=== PATIENT | female | born 1925 | race Caucasian/White ===

== ENCOUNTER 2017-05-19 14:27 | Inpatient (IN) | payer OTHER ==
[2017-05-19] MEDS ORDERED: SODIUM CHLORIDE 0.9% 1000 ML INFUS.BAG IV STA (14:50)
--- NOTE | 2017-05-19 15:18 | PDOC ---
History of Present Illness - General Chief Complaint: Altered Mental Status Stated Complaint: NOT FEELING WELL Time Seen by Provider: 05/19/17 14:35 History Source: Patient, Senior Living Records Exam Limitations: Clinical Condition - History of Present Illness Initial Comments: 05/19/17 18:38 The patient is an 89year old female, nursing patient at [facility] with pmh of DM2, CKD stage 3, atherosclerothic heart disease, HTN, CHF, chronic anemia sent to the ED by EMS for altered mental status since today and likely fall without LOC. No obvious signs of trauma or bleed. No recent episodes of infections as reported by prison. 05/19/17 19:10 05/19/17 19:12 Past History - Past Medical History Allergies/Adverse Reactions: Allergies Allergy/AdvReac Type Severity Reaction Status Date / Time No Known Allergies Allergy Unverified 05/19/17 14:32 Home Medications: Ambulatory Orders Acetaminophen [Tylenol -] 500 mg PO Q4H 05/19/17 Aspirin [ASA -] 81 mg PO DAILY 05/19/17 Calcium Carbonate/Vitamin D3 [Calcium 500 + Vit D 200 Caplet] 1 each PO DAILY Cholecalciferol (Vitamin D3) [Vitamin D3] 1,000 unit PO DAILY 05/19/17 Digoxin Oral Solution [Lanoxin Oral Solution -] 100 mcg PO ONCE 05/19/17 Diltiazem Cd [Cardizem Cd -] 240 mg PO DAILY 05/19/17 Folic Acid 1 mg PO DAILY 05/19/17 Furosemide [Lasix] 40 mg PO DAILY 05/19/17 Gabapentin 400 mg PO BID 05/19/17 Gabapentin [Neurontin -] 100 mg PO Q8H 05/19/17 Insulin Aspart [Novolog] 100 unit SQ ASDIR 05/19/17 Insulin Detemir [Levemir Flextouch] 43 unit SQ DAILY 05/19/17 Isosorbide Mononitrate [Isosorbide Mononitrate ER] 30 mg PO DAILY 05/19/17 Levothyroxine [Synthroid -] 125 mcg PO DAILY 05/19/17 Losartan Potassium [Cozaar -] 50 mg PO DAILY 05/19/17 Magnesium Hydrox 2400MG/30Ml [Milk of Magnesia -] 30 ml PO ONCE 05/19/17 Metformin HCl 500 mg PO DAILY 05/19/17 Metoprolol Tartrate 25 mg PO BID 05/19/17 Multivitamin [Poly-Vitamin] 1 each PO DAILY 05/19/17 Olmesartan Medoxomil 20 mg PO DAILY 05/19/17 Potassium Chloride 10 meq PO DAILY 05/19/17 Simvastatin [Zocor -] 5 mg PO HS 05/19/17 Thiamine HCl [Vitamin B-1] 100 mg PO DAILY 05/19/17 Anemia: Yes Cardiac Disorders: Yes (AFIB) Diabetes: Yes Hypercholesterolemia: Yes Thyroid Disease: Yes - Psycho/Social/Smoking Cessation Hx Suicidal Ideation: No Smoking History: Never smoked Information on smoking cessation initiated: No Hx Alcohol Use: No Review of Systems - Review of Systems Able to Perform ROS?: No *Physical Exam - Vital Signs Last Vital Signs Temp Pulse Resp BP Pulse Ox 58 L 18 138/68 86 L 05/19/17 14:34 05/19/17 14:34 05/19/17 14:34 05/19/17 14:34 - Physical Exam General Appearance: Yes: Nourished, Disheveled, Moderate Distress (patient very pale) HEENT: positive: EOMI, VALERIANO Neck: positive: Trachea midline. negative: Tender Respiratory/Chest: positive: Labored Respiration, Decreased Breath Sounds. negative: Chest Tender Cardiovascular: positive: Regular Rhythm, Regular Rate, S1, S2, Bradycardia Vascular Pulses: Dorsalis-Pedis (R): 1+, Doralis-Pedis (L): 1+ Gastrointestinal/Abdominal: positive: Normal Bowel Sounds, Protuberent, Distended. negative: Guarding Neurologic: positive: Fully Oriented (Easily falls asleep), Respond to painful stimul, Responsive, Depressed Affect. negative: Facial Droop, Numbness, Sensory Deficit ED Treatment Course - LABORATORY CBC & Chemistry Diagram: 05/19/17 14:55 05/19/17 14:55 Medical Decision Making - Medical Decision Making 05/19/17 19:12 The patient is an 89year old female, nursing patient at [facility] with pmh of DM2, CKD stage 3, atherosclerothic heart disease, HTN, CHF, chronic anemia sent to the ED by EMS for altered mental status since today and likely fall without LOC. Stroke vs unknown source of infection vs cardiac event Patient desaturating in the 80's, placed one bipap, o2 up. Ekg: unchanged from older ones. Ct head pending CBC, Lytes: + for hyperkalemia, patient receiving treatment Ca gluconate, insulin+ glucago. UA+ for UTI, patient started on Rocephin. Acute kidney injury, NS started, ABG: Respiratory acidosis uncompensated. Patient signed out to Dr. Combs. 05/19/17 19:17 05/19/17 19:22 05/19/17 19:23 *DC/Admit/Observation/Transfer Diagnosis at time of Disposition: Respiratory failure, Acute renal failure (ARF), UTI (urinary tract infection), Sepsis associated hypotension - Discharge Dispostion Condition at time of disposition: Improved
[2017-05-19 15:20] LABS: ARTERIAL BLD GAS O2 SATURATION 33.7 % (90-98.9); ARTERIAL BLOOD GAS BASE EXCESS -2.5 meq/l (-2-2); ARTERIAL BLOOD GAS HCO3 25.6 meq/L (22-26); ARTERIAL BLOOD GAS PO2 27.1 mmHg (68-100)
[2017-05-19 15:23] LABS: ART PUNCT SITE RIGHT BRACHIAL; LPM/O2% 4.0LPM; METHEMOGLOBIN 0.9 % (0.4-1.5); PT. ON O2? YES; TYPE OF O2 NASAL CANNULA
[2017-05-19 15:25] LABS: ARTERIAL BLOOD GAS pH 7.22 (7.35-7.45)
[2017-05-19 15:48] LABS: URINE APPEARANCE CLOUDY; URINE BILIRUBIN NEGATIVE (NEGATIVE); URINE BLOOD NEGATIVE (NEGATIVE); URINE COLOR DKYELLOW; URINE GLUCOSE (UA) NEGATIVE (NEGATIVE); URINE KETONE NEGATIVE (NEGATIVE); URINE NITRITE NEGATIVE (NEGATIVE); URINE UROBILINOGEN NEGATIVE mg/dL (0.2-1.0)
[2017-05-19 15:50] LABS: BASOPHIL 0.7 % (0-2.0); EOSINOPHIL 1.2 % (0-4.5); MCH 33.7 pg (25.7-33.7); MEAN CELL VOLUME 105.3 fl (80-96); MEAN PLT VOLUME 8.4 fl (7.5-11.1); NEUTROPHILS 70.3 % (42.8-82.8); PLATELET COUNT 302 K/MM3 (134-434); RDW 16.8 % (11.6-15.6); URINE LEUK ESTERASE 3+ (NEGATIVE); URINE PROTEIN 1+ (NEGATIVE); WHITE BLOOD COUNT 8.7 K/mm3 (4.0-10.0)
[2017-05-19 15:51] LABS: URINE BACTERIA MANY /hpf (NONE SEEN); URINE HYALINE CAST 44 /lpf; URINE MUCUS FEW; URINE RBC 3 /hpf (0-3); URINE WBC 224 /hpf (3-5); YEAST FEW
[2017-05-19 16:03] LABS: INR 1.43 (0.82-1.09); PROTHROMBIN TIME (PATIENT) 15.9 SEC (9.98-11.88)
[2017-05-19 16:06] LABS: ACTIVATED PTT 31.5 SECONDS (26.9-34.4)
[2017-05-19 16:17] LABS: ALBUMIN 3.9 g/dl (3.4-5.0); ANION GAP 12 (8-16); CALCIUM 9.5 mg/dL (8.5-10.1); CO2 23 mmol/L (21-32); CREATININE 3.7 mg/dL (0.55-1.02); GLUCOSE,RANDOM 181 mg/dL (74-106); SGPT/ALT 24 U/L (12-78)
[2017-05-19 16:21] LABS: ALK PHOS 60 U/L (45-117); BILIRUBIN,TOTAL 0.3 mg/dL (0.2-1.0); CPK 359 IU/L (26-192); TOT PROT 8.1 g/dl (6.4-8.2); TROPONIN I < 0.02 ng/ml (0.00-0.05)
[2017-05-19 16:24] LABS: SGOT/AST 25 U/L (15-37)
[2017-05-19] MEDS ORDERED: INSULIN REGULAR HUMAN 100 UNITS/ML *VIAL IVPUSH ONE ×2 (16:37→23:22)
[2017-05-19] MEDS ORDERED: CALCIUM GLUCONATE 10% - 1,000 MG/10 ML VIAL IVPB ONE (16:37)
[2017-05-19] MEDS ORDERED: SODIUM BICARBONATE 8.4% 50 MEQ/50 ML DISP.SYRIN IVPUSH ONE (16:37)
[2017-05-19] MEDS ORDERED: DEXTROSE 50%-WATER - 25 GM/50 ML VIAL IVPUSH ONE ×2 (16:37→23:23)
[2017-05-19] MEDS ORDERED: cefTRIAXone 1 GM/50 ML BAG (PRE-DOCKED) IVPB ONE (16:41)
--- NOTE | 2017-05-19 16:46 | PDOC ---
Attending Attestation - Resident Resident Name: Chele Martinez - ED Attending Attestation I have performed the following: I have examined & evaluated the patient, The case was reviewed & discussed with the resident, I agree w/resident's findings & plan, Exceptions are as noted - HPI HPI: 05/19/17 16:44 Difficulty Breathing- Complicated PMH Patient has Signed DNR in chart from 2012 But says that we could even intubate her if necessary if we thought it would only be a few days. - Physicial Exam PE: 05/19/17 16:45 Marked Respiratory Difficulty.... quite possibly retaining CO2..... will start BiPAP I agree with Dr. Martinez's assessment and plan - Medical Decision Making 05/19/17 16:[address] Martinez's assessment and plan Discharge Disposition - Diagnosis Respiratory failure, Acute renal failure (ARF), UTI (urinary tract infection), Sepsis associated hypotension - Discharge Dispostion Condition at time of disposition: Improved Last Admission D/C Date: 04/30/15 Admit: Yes - Referrals Referrals: Kika De La O MD [Primary Care Provider] -
[2017-05-19 17:01] LABS: ANISOCYTOSIS 1+; MACROCYTOSIS 1+; OVALOCYTE 1+; PLATELET ESTIMATE ADEQUATE; POIKILOCYTOSIS 1+; POLYCHROMASIA 1+
[2017-05-19] MEDS ORDERED: CALCIUM GLUCONATE 10% - 1,000 MG/10 ML VIAL ONE ×2 (17:02→22:31)
[2017-05-19] MEDS ORDERED: DEXTROSE 50%-WATER - 25 GM/50 ML VIAL ONE (17:02)
[2017-05-19] MEDS ORDERED: CEFTRIAXONE 50 ML ONE (17:03)
[2017-05-19] MEDS ORDERED: SODIUM BICARBONATE 8.4% - 50 ML ONE (17:03)
[2017-05-19] MEDS ORDERED: METOPROLOL TARTRATE 25 MG TABLET (FP) ONE (22:18)
[2017-05-19] MEDS ORDERED: RAPID SEQUENCE INTUBATION KIT NR ONE (22:26)
[2017-05-19] MEDS ORDERED: DEXTROSE 50%-WATER 50 ML DISP.SYRIN ONE (22:31)
[2017-05-19] MEDS ORDERED: VASOPRESSIN 20 UNITS/ML VIAL IV ONE (22:48)
--- NOTE | 2017-05-19 23:01 | CONSULT ---
Consult - History of Present Illness History of Present Illness: 89 yo woman residential resident w/ MMP: HTN, HLD, DM, afib on digoxin, CKD ( stage 3), CHF, anemia who presented for NH w/ AMS s/p fall. In ED found to have hypercapnic resp failure: pH 7.22 PC02: 64 and PVC on CXR. BNP: 6749, trop neg. Last ECHO: EF 70% w/ RVSP >60. Patient placed on NIPPV initially w/ good effect but patient has progressive AMS and required intubation. CT head w/o acute pathology. Labs also significant for JAZZ w/ SCr: 3.7. U/A: +3 LE, 224 wbc. - History Source History Provided By: Medical Record Limitations to Obtaining History: Intubated - Past Medical History Cardio/Vascular: Yes: AFIB, HTN, Hyperlipdemia Renal/: Yes: Renal Inusuff, UTI Endocrine: Yes: Diabetes Mellitus - Alcohol/Substance Use Hx Alcohol Use: No - Smoking History Smoking history: Never smoked - Social History Usual Living Arrangement: Intermediate ADL: Support Services History of Recent Travel: No Home Medications - Allergies Allergies/Adverse Reactions: Allergies Allergy/AdvReac Type Severity Reaction Status Date / Time No Known Allergies Allergy Unverified 05/19/17 14:32 - Home Medications Home Medications: Ambulatory Orders Acetaminophen [Tylenol -] 500 mg PO Q4H 05/19/17 Aspirin [ASA -] 81 mg PO DAILY 05/19/17 Calcium Carbonate/Vitamin D3 [Calcium 500 + Vit D 200 Caplet] 1 each PO DAILY Cholecalciferol (Vitamin D3) [Vitamin D3] 1,000 unit PO DAILY 05/19/17 Digoxin Oral Solution [Lanoxin Oral Solution -] 100 mcg PO ONCE 05/19/17 Diltiazem Cd [Cardizem Cd -] 240 mg PO DAILY 05/19/17 Folic Acid 1 mg PO DAILY 05/19/17 Furosemide [Lasix] 40 mg PO DAILY 05/19/17 Gabapentin 400 mg PO BID 05/19/17 Gabapentin [Neurontin -] 100 mg PO Q8H 05/19/17 Insulin Aspart [Novolog] 100 unit SQ ASDIR 05/19/17 Insulin Detemir [Levemir Flextouch] 43 unit SQ DAILY 05/19/17 Isosorbide Mononitrate [Isosorbide Mononitrate ER] 30 mg PO DAILY 05/19/17 Levothyroxine [Synthroid -] 125 mcg PO DAILY 05/19/17 Losartan Potassium [Cozaar -] 50 mg PO DAILY 05/19/17 Magnesium Hydrox 2400MG/30Ml [Milk of Magnesia -] 30 ml PO ONCE 05/19/17 Metformin HCl 500 mg PO DAILY 05/19/17 Metoprolol Tartrate 25 mg PO BID 05/19/17 Multivitamin [Poly-Vitamin] 1 each PO DAILY 05/19/17 Olmesartan Medoxomil 20 mg PO DAILY 05/19/17 Potassium Chloride 10 meq PO DAILY 05/19/17 Simvastatin [Zocor -] 5 mg PO HS 05/19/17 Thiamine HCl [Vitamin B-1] 100 mg PO DAILY 05/19/17 Family Disease History - Family Disease History Family History: Unable to Obtain Review of Systems Unable to obtain ROS, reason: intubation Physical Exam Vital Signs: Vital Signs Temperature 98.6 F 05/19/17 21:58 Pulse Rate 52 L 05/19/17 21:58 Respiratory Rate 18 05/19/17 20:28 Blood Pressure 113/87 05/19/17 21:58 O2 Sat by Pulse Oximetry (%) 98 05/19/17 21:58 Current Medications Diltiazem HCl (Cardizem Cd -) 240 mg PO DAILY [facility] Heparin Sodium (Porcine) (Heparin -) 5,000 unit SQ TID [facility] Propofol (Diprivan -) 100 mls @ 2.041 mls/hr IVPB TITR MARY; 5 MCG/KG/MIN PRN Reason: Protocol Famotidine/Sodium Chloride (Pepcid 20 Mg Premixed Ivpb -) 50 mls @ 100 mls/hr IVPB Q2D [facility] Isosorbide Mononitrate (Imdur -) 30 mg PO DAILY [facility] Levothyroxine Sodium (Synthroid -) 150 mcg PO DAILY@0700 [facility] Metoprolol Tartrate (Lopressor -) 25 mg PO BID [facility] Piperacillin Sod/Tazobactam Sod (Zosyn 3.375gm Ivpb (Pre-Docked)) 3.375 gm IVPB BID MARY PRN Reason: Protocol Constitutional: Yes: Obese, Other (sedated) Eyes: Yes: PERRL Cardiovascular: Yes: Regular Rate and Rhythm, S1, S2 Respiratory: Yes: Intubated, Rhonchi Gastrointestinal: Yes: Normal Bowel Sounds, Soft, Abdomen, Obese Edema: LLE: 2+, RLE: 2+ Neurological: Yes: Other (sedated RASS -4) Labs: CBCD WBC 8.7 K/mm3 (4.0-10.0) 05/19/17 14:55 RBC 3.38 M/mm3 (3.60-5.2) L 05/19/17 14:55 Hgb 11.4 GM/dL (10.7-15.3) D 05/19/17 14:55 Hct 35.6 % (32.4-45.2) D 05/19/17 14:55 MCV 105.3 fl (80-96) H 05/19/17 14:55 MCHC 32.0 g/dl (32.0-36.0) 05/19/17 14:55 RDW 16.8 % (11.6-15.6) H D 05/19/17 14:55 Plt Count 302 K/MM3 (134-434) 05/19/17 14:55 MPV 8.4 fl (7.5-11.1) D 05/19/17 14:55 CMP Sodium 134 mmol/L (136-145) L 05/19/17 14:55 Potassium 7.6 mmol/L (3.5-5.1) H* D 05/19/17 14:55 Chloride 99 mmol/L (98-107) 05/19/17 14:55 Carbon Dioxide 23 mmol/L (21-32) D 05/19/17 14:55 Anion Gap 12 (8-16) 05/19/17 14:55 BUN 73 mg/dL (7-18) H D 05/19/17 14:55 Creatinine 3.7 mg/dL (0.55-1.02) H D 05/19/17 14:55 Creat Clearance w eGFR 11.53 (>60) 05/19/17 14:55 Random Glucose 181 mg/dL (74-106) H D 05/19/17 14:55 Calcium 9.5 mg/dL (8.5-10.1) 05/19/17 14:55 Total Bilirubin 0.3 mg/dL (0.2-1.0) D 05/19/17 14:55 AST 25 U/L (15-37) 05/19/17 14:55 ALT 24 U/L (12-78) 05/19/17 14:55 Alkaline Phosphatase 60 U/L (45-117) D 05/19/17 14:55 Total Protein 8.1 g/dl (6.4-8.2) D 05/19/17 14:55 Albumin 3.9 g/dl (3.4-5.0) D 05/19/17 14:55 CARDIAC ENZYMES Creatine Kinase 359 IU/L (26-192) H 05/19/17 14:55 Troponin I < 0.02 ng/ml (0.00-0.05) 05/19/17 14:55 Urine Test Results Urine Color Dkyellow 05/19/17 14:55 Urine Appearance Cloudy 05/19/17 14:55 Urine pH 5.0 (5.0-8.0) 05/19/17 14:55 Ur Specific [place] >= 1.030 (1.005-1.025) H 05/19/17 14:55 Urine Protein 1+ (NEGATIVE) H 05/19/17 14:55 Urine Glucose (UA) Negative (NEGATIVE) 05/19/17 14:55 Urine Ketones Negative (NEGATIVE) 05/19/17 14:55 Urine Blood Negative (NEGATIVE) 05/19/17 14:55 Urine Nitrite Negative (NEGATIVE) 05/19/17 14:55 Urine Bilirubin Negative (NEGATIVE) 05/19/17 14:55 Ur Leukocyte Esterase 3+ (NEGATIVE) H 05/19/17 14:55 Urine RBC 3 /hpf (0-3) 05/19/17 14:55 Urine WBC 224 /hpf (3-5) 05/19/17 14:55 Ur Epithelial Cells Rare /hpf (FEW) 05/19/17 14:55 Urine Bacteria Many /hpf (NONE SEEN) 05/19/17 14:55 Urine Mucus Few 05/19/17 14:55 ABG Results ABG pH 7.22 (7.35-7.45) L* 05/19/17 15:13 ABG pCO2 at Pt Temp 64.2 mmHg (35-45) H* 05/19/17 15:13 ABG pO2 at Pt Temp 27.1 mmHg (68-100) L* 05/19/17 15:13 ABG HCO3 25.6 meq/L (22-26) 05/19/17 15:13 ABG O2 Sat (Measured) 33.7 % (90-98.9) L* 05/19/17 15:13 ABG O2 Content 5.1 % vol (15-22) L* 05/19/17 15:13 ABG Base Excess -2.5 meq/l (-2-2) L 05/19/17 15:13 Imaging - Results Chest X-ray: Report Reviewed, Image Reviewed X-ray: Report Reviewed, Image Reviewed Problem List - Problems (1) Acute renal failure (ARF) Code(s): N17.9 - ACUTE KIDNEY FAILURE, UNSPECIFIED (2) Respiratory failure Code(s): J96.90 - RESPIRATORY FAILURE, UNSP, UNSP W HYPOXIA OR HYPERCAPNIA (3) UTI (urinary tract infection) Code(s): N39.0 - URINARY TRACT INFECTION, SITE NOT SPECIFIED (4) Altered mental status Code(s): R41.82 - ALTERED MENTAL STATUS, UNSPECIFIED (5) CHF (congestive heart failure) Code(s): I50.9 - HEART FAILURE, UNSPECIFIED Qualifiers: Congestive heart failure type: systolic Congestive heart failure chronicity: acute Qualified Code(s): I50.21 - Acute systolic (congestive) heart failure (6) Diabetes Code(s): E11.9 - TYPE 2 DIABETES MELLITUS WITHOUT COMPLICATIONS Assessment/Plan a/p: 89 yo woman with HTN, DM, CHF, pHTN on last ECHO, acute on CKD: prerenal from sepsis vs CHF vs ATN, CHF p/w AMS s/p fall found to have UTI +/- HCAP and CHF c/b hypercapnia requiring intubation -ICU monitoring -cont BB/isosorbide tiago hold for hypotension -check dig level -sedation w/ propofol as needed -daily interruption of sedation -O2 for sat >90% -VAP bundle -daily weaning trials once stable -LE ultrasound (unclear if on pradaxa at [place]) -NIPPV as needed -Renal consult -Renal dose medications -urine lytes -renal u/s pending -will likely require aggressive diuresis for CHF/PVC and pHTN with lasix -zosyn HCAP and UTI (h/o E. coli in past) coverage -ID consult in AM -send sputum culutre -f/u cultures -DVT/GI prophylaxis -glucose control -DNR, cont goals of care discussions Yolanda ACNP Pulm/CCM CCT: 35m
[2017-05-19] MEDS ORDERED: ETOMIDATE 40 MG/20 ML VIAL IVPUSH ONE (23:10)
[2017-05-19] MEDS ORDERED: ROCURONIUM BROMIDE 50 MG/5 ML VIAL IVPUSH ONE (23:10)
[2017-05-19] MEDS ORDERED: CALCIUM GLUCONATE 10% - 1,000 MG/10 ML VIAL IVPUSH ONE (23:22)
--- NOTE | 2017-05-19 23:24 | PDOC ---
*Physical Exam - Vital Signs Last Vital Signs Temp Pulse Resp BP Pulse Ox 98.6 F 52 L 18 113/87 98 05/19/17 21:58 05/19/17 21:58 05/19/17 20:28 05/19/17 21:58 05/19/17 21:58 ED Treatment Course - LABORATORY CBC & Chemistry Diagram: 05/19/17 14:55 05/19/17 14:55 - ADDITIONAL ORDERS Additional order review: Laboratory Results 05/19/17 05/19/17 05/19/17 15:13 15:13 14:55 INR PTT (Actin FS) Puncture Site Right brachial ABG pH 7.22 L* ABG pCO2 at Pt Temp 64.2 H* ABG pO2 at Pt Temp 27.1 L* ABG HCO3 25.6 ABG O2 Sat (Measured) 33.7 L* ABG O2 Content 5.1 L* ABG Base Excess -2.5 L Gonzalo Test Not applicable Carboxyhemoglobin 1.3 Methemoglobin 0.9 O2 Delivery Device Nasal cannula Oxygen Flow Rate 4.0lpm PEEP 0.0 Sodium Potassium Chloride Carbon Dioxide Anion Gap BUN Creatinine Creat Clearance w eGFR Random Glucose Lactic Acid Calcium Total Bilirubin AST ALT Alkaline Phosphatase Creatine Kinase Creatine Kinase Index CK-MB (CK-2) Troponin I B-Natriuretic Peptide 6749.30 H Total Protein Albumin Urine Color Urine Appearance Urine pH Ur Specific [place] Urine Protein Urine Glucose (UA) Urine Ketones Urine Blood Urine Nitrite Urine Bilirubin Urine Urobilinogen Ur Leukocyte Esterase Urine RBC Urine WBC Ur Epithelial Cells Urine Bacteria Hyaline Casts Urine Mucus Urine Yeast Blood Type A POSITIVE Antibody Screen Negative 05/19/17 05/19/17 05/19/17 14:55 14:55 14:55 INR PTT (Actin FS) Puncture Site ABG pH ABG pCO2 at Pt Temp ABG pO2 at Pt Temp ABG HCO3 ABG O2 Sat (Measured) ABG O2 Content ABG Base Excess Gonzalo Test Carboxyhemoglobin Methemoglobin O2 Delivery Device Oxygen Flow Rate PEEP Sodium 134 L Potassium 7.6 H* D Chloride 99 Carbon Dioxide 23 D Anion Gap 12 BUN 73 H D Creatinine 3.7 H D Creat Clearance w eGFR 11.53 Random Glucose 181 H D Lactic Acid 1.6 Calcium 9.5 Total Bilirubin 0.3 D AST 25 ALT 24 Alkaline Phosphatase 60 D Creatine Kinase 359 H Creatine Kinase Index 0.8 CK-MB (CK-2) 2.935 Troponin I < 0.02 B-Natriuretic Peptide Total Protein 8.1 D Albumin 3.9 D Urine Color Dkyellow Urine Appearance Cloudy Urine pH 5.0 Ur Specific [place] >= 1.030 H Urine Protein 1+ H Urine Glucose (UA) Negative Urine Ketones Negative Urine Blood Negative Urine Nitrite Negative Urine Bilirubin Negative Urine Urobilinogen Negative Ur Leukocyte Esterase 3+ H Urine RBC 3 Urine WBC 224 Ur Epithelial Cells Rare Urine Bacteria Many Hyaline Casts 44 Urine Mucus Few Urine Yeast Few Blood Type Antibody Screen 05/19/17 14:55 INR 1.43 H PTT (Actin FS) 31.5 D Puncture Site ABG pH ABG pCO2 at Pt Temp ABG pO2 at Pt Temp ABG HCO3 ABG O2 Sat (Measured) ABG O2 Content ABG Base Excess Gonzalo Test Carboxyhemoglobin Methemoglobin O2 Delivery Device Oxygen Flow Rate PEEP Sodium Potassium Chloride Carbon Dioxide Anion Gap BUN Creatinine Creat Clearance w eGFR Random Glucose Lactic Acid Calcium Total Bilirubin AST ALT Alkaline Phosphatase Creatine Kinase Creatine Kinase Index CK-MB (CK-2) Troponin I B-Natriuretic Peptide Total Protein Albumin Urine Color Urine Appearance Urine pH Ur Specific [place] Urine Protein Urine Glucose (UA) Urine Ketones Urine Blood Urine Nitrite Urine Bilirubin Urine Urobilinogen Ur Leukocyte Esterase Urine RBC Urine WBC Ur Epithelial Cells Urine Bacteria Hyaline Casts Urine Mucus Urine Yeast Blood Type Antibody Screen 05/19/17 14:55 RBC 3.38 L MCV 105.3 H MCHC 32.0 RDW 16.8 H D MPV 8.4 D Neutrophils % 70.3 Lymphocytes % 15.9 D Monocytes % 11.9 H Eosinophils % 1.2 Basophils % 0.7 - Medications Given in the ED: ED Medications Discontinued Medications Generic Name Dose Route Start Last Admin Trade Name Freq PRN Reason Stop Dose Admin Calcium Gluconate 1,000 mg 05/19/17 16:37 05/19/17 18:26 Calcium Gluconate 10% - IVPB 05/19/17 16:38 1,000 mg ONCE ONE Administration Ceftriaxone Sodium 1 gm 05/19/17 16:41 05/19/17 17:20 Rocephin 1gm Ivpb (Pre-Docked) IVPB 05/19/17 16:42 1 gm ONCE ONE Administration Protocol Dextrose 50 gm 05/19/17 16:37 05/19/17 17:20 D50w (Vial) - IVPUSH 05/19/17 16:38 50 gm NOW ONE Administration Insulin Human Regular 10 units 05/19/17 16:37 05/19/17 17:20 Novolin R Vial *For Ivpush Or Iv Drip Only* IVPUSH 05/19/17 16:38 10 unit ONCE ONE Administration Sodium Bicarbonate 50 meq 05/19/17 16:37 05/19/17 17:20 Sodium Bicarbonate 8.4% - IVPUSH 05/19/17 16:38 50 meq ONCE ONE Administration Sodium Chloride 1,361 ml 05/19/17 14:50 05/19/17 15:30 Normal Saline - IV 05/19/17 14:51 1,361 ml ONCE STA Administration Medical Decision Making - Medical Decision Making 05/19/17 23:17 Sign out taken from Dr. Junior at 7pm. At approx 10 PM, pt was found to be unresponsive. She had been on BiPAP for about 1 hour and was last seen awake and mentating about 20 minutes prior. Due to poor mental status and inability to cooperate with BiPAP, decision was made to intubate pt. I personally spoke with pt's healthcare proxy, Keysha Almazan, who agrees to proceed with intubation. Dr. Junior also had conversation with patient herself earlier today when she was alert, and pt stated that she was amenable to intubation if it was required. Etomidate 20mg and rocuronium 100mg were given, and pt was intubated by DL. Vitals at time of intubation showed HR 50, BP 110/50, O2 100%. 7.0 ETT advanced to 20cm. Placement confirmed by direct visualization, auscultation, and color capnography. Chest XR ordered. Pt to be transported to ICU. *DC/Admit/Observation/Transfer Diagnosis at time of Disposition: Respiratory failure, Acute renal failure (ARF), UTI (urinary tract infection), Sepsis associated hypotension - Discharge Dispostion Condition at time of disposition: Improved Intubation - Intubation Reason for Intubation: Respiratory Failure, Airway Protection Time of Intubation: 23:00 Intubation Method: orotracheal Blade used: Mac Tube Size (cm): 7.0 Tube position @ lip (cm): 20 Tube position confirmed by: Direct visualization, CO2 detector, Breath sounds Breath Sounds after Intubation: equal Post Intubation Xray: Yes (ordered)
[2017-05-19] MEDS: METOPROLOL TARTRATE 25 MG TABLET (FP) PO SCH (23:26)
[2017-05-19] MEDS ORDERED: PROPOFOL 100 ML ONE (23:30)
[2017-05-19] MEDS ORDERED: PIPERACILLIN/TAZOB 3.375 GM/50 ML PRE-DOCKED IVPB SCH (23:30)
[2017-05-19] MEDS ORDERED: PIPERACILLIN/TAZOB 3.375 GM/50 ML PRE-DOCKED IVPB ONE (23:45)
[2017-05-20 00:08] LABS: ARTERIAL BLOOD GAS pH 7.38 (7.35-7.45)
[2017-05-20 00:09] LABS: ALLENS TEST POSITIVE; ART PUNCT SITE RIGHT RADIAL; ARTERIAL BLOOD GAS BASE EXCESS -1.6 meq/l (-2-2); ARTERIAL BLOOD GAS HCO3 22.7 meq/L (22-26); LPM/O2% 70%; MECH. VENT. Y; PT. ON O2? YES; TYPE OF O2 VENT; VENT RATE 5; VT/PRESS 500
[2017-05-20] MEDS: PROPOFOL 100 ML IVPB SCH ×2 (00:39→06:34)
[2017-05-20 01:47] VITALS: BMI 32.3
[2017-05-20] MEDS: HEPARIN NA (PORCINE) 5,000 UNITS/ML 1ML VIAL SQ SCH ×3 (06:34→21:45)
[2017-05-20 06:43] LABS: BASOPHIL 0.5 % (0-2.0); MCH 33.8 pg (25.7-33.7); MCHC 33.6 g/dl (32.0-36.0); MEAN CELL VOLUME 100.7 fl (80-96); MEAN PLT VOLUME 7.7 fl (7.5-11.1); PLATELET COUNT 229 K/MM3 (134-434); RDW 15.9 % (11.6-15.6); WHITE BLOOD COUNT 7.5 K/mm3 (4.0-10.0)
[2017-05-20 07:21] LABS: ARTERIAL BLD GAS O2 SATURATION 98.1 % (90-98.9); ARTERIAL BLOOD GAS BASE EXCESS 2.9 meq/l (-2-2); ARTERIAL BLOOD GAS HCO3 25.7 meq/L (22-26); ARTERIAL BLOOD GAS PO2 91.6 mmHg (68-100)
[2017-05-20 07:25] LABS: ALLENS TEST POSITIVE; ART PUNCT SITE RIGHT RADIAL; LPM/O2% 40; MECH. VENT. YES; PT. ON O2? YES; TYPE OF O2 VENT; VENT RATE 20; VT/PRESS 360
[2017-05-20 07:26] LABS: ARTERIAL BLOOD GAS pH 7.49 (7.35-7.45)
[2017-05-20 08:20] LABS: ALBUMIN 3.2 g/dl (3.4-5.0); ANION GAP 8 (8-16); CALCIUM 9.4 mg/dL (8.5-10.1); CO2 26 mmol/L (21-32); CREATININE 2.7 mg/dL (0.55-1.02); GLUCOSE,RANDOM 106 mg/dL (74-106); SGOT/AST 32 U/L (15-37); SGPT/ALT 20 U/L (12-78)
[2017-05-20 08:34] LABS: ALK PHOS 49 U/L (45-117); BILIRUBIN,TOTAL 0.5 mg/dL (0.2-1.0); DIGOXIN LEVEL 0.5987 ng/ml (0.8-2.0); TOT PROT 6.7 g/dl (6.4-8.2)
[2017-05-20] MEDS ORDERED: PT OWN MED DRAWER 7, Y5N ONE ×2 (09:13→11:12)
--- NOTE | 2017-05-20 09:44 | HP ---
Admitting History and Physical - Primary Care Physician PCP: Kika De La O - Admission Chief Complaint: respiratory failure History of Present Illness: ER HISTORY - History of Present Illness Initial Comments: 05/19/17 18:38 The patient is an 89year old female, nursing patient at [facility] with pmh of DM2, CKD stage 3, atherosclerothic heart disease, HTN, CHF, chronic anemia sent to the ED by EMS for altered mental status since today and likely fall without LOC. No obvious signs of trauma or bleed. No recent episodes of infections as reported by shelter. Pt examined in ICU Events noted Intubated last night on Propofol drip, sedated. Admitted last night with acute renal failure ,hyperkalemia and acute respiratory failure History Source: Medical Record Limitations to Obtaining History: Intubated - Past Medical History Cardiovascular: Yes: AFIB, HTN, Hyperlipdemia Renal/: Yes: Renal Inusuff, UTI Endocrine: Yes: Diabetes Mellitus - Advance Directives Advance Directives: Yes: Health Care Proxy, DNR - Smoking History Smoking history: Never smoked - Alcohol/Substance Use Hx Alcohol Use: No - Social History ADL: Support Services History of Recent Travel: No Home Medications - Allergies Allergies/Adverse Reactions: Allergies Allergy/AdvReac Type Severity Reaction Status Date / Time No Known Allergies Allergy Unverified 05/19/17 14:32 - Home Medications Home Medications: Ambulatory Orders Acetaminophen [Tylenol -] 500 mg PO Q4H 05/19/17 Aspirin [ASA -] 81 mg PO DAILY 05/19/17 Calcium Carbonate/Vitamin D3 [Calcium 500 + Vit D 200 Caplet] 1 each PO DAILY Cholecalciferol (Vitamin D3) [Vitamin D3] 1,000 unit PO DAILY 05/19/17 Digoxin Oral Solution [Lanoxin Oral Solution -] 100 mcg PO ONCE 05/19/17 Diltiazem Cd [Cardizem Cd -] 240 mg PO DAILY 05/19/17 Folic Acid 1 mg PO DAILY 05/19/17 Furosemide [Lasix] 40 mg PO DAILY 05/19/17 Gabapentin 400 mg PO BID 05/19/17 Gabapentin [Neurontin -] 100 mg PO Q8H 05/19/17 Insulin Aspart [Novolog] 100 unit SQ ASDIR 05/19/17 Insulin Detemir [Levemir Flextouch] 43 unit SQ DAILY 05/19/17 Isosorbide Mononitrate [Isosorbide Mononitrate ER] 30 mg PO DAILY 05/19/17 Levothyroxine [Synthroid -] 125 mcg PO DAILY 05/19/17 Losartan Potassium [Cozaar -] 50 mg PO DAILY 05/19/17 Magnesium Hydrox 2400MG/30Ml [Milk of Magnesia -] 30 ml PO ONCE 05/19/17 Metformin HCl 500 mg PO DAILY 05/19/17 Metoprolol Tartrate 25 mg PO BID 05/19/17 Multivitamin [Poly-Vitamin] 1 each PO DAILY 05/19/17 Olmesartan Medoxomil 20 mg PO DAILY 05/19/17 Potassium Chloride 10 meq PO DAILY 05/19/17 Simvastatin [Zocor -] 5 mg PO HS 05/19/17 Thiamine HCl [Vitamin B-1] 100 mg PO DAILY 05/19/17 Review of Systems Unable to obtain ROS, reason: intubated Physical Examination Vital Signs: Vital Signs Temperature 98.6 F 05/20/17 07:00 Pulse Rate 89 05/20/17 07:00 Respiratory Rate 20 05/20/17 08:08 Blood Pressure 119/75 05/20/17 07:00 O2 Sat by Pulse Oximetry (%) 99 05/20/17 08:08 Constitutional: Yes: No Distress HENT: Yes: Other (intubated) Cardiovascular: Yes: Pulse Irregular Respiratory: Yes: Diminished Gastrointestinal: Yes: Normal Bowel Sounds, Soft. No: Tenderness Edema: Yes Psychiatric: Yes: Other (sedated) Labs: CBC, BMP 05/20/17 05:20 05/20/17 05:20 Imaging - Results Chest X-ray: Image Reviewed (congested) Ultrasound: Report Reviewed (renal sono) EKG: Image Reviewed (Afib) Problem List - Problems (1) Acute renal failure (ARF) Code(s): N17.9 - ACUTE KIDNEY FAILURE, UNSPECIFIED (2) Respiratory failure Code(s): J96.90 - RESPIRATORY FAILURE, UNSP, UNSP W HYPOXIA OR HYPERCAPNIA (3) Altered mental status Code(s): R41.82 - ALTERED MENTAL STATUS, UNSPECIFIED (4) Sepsis associated hypotension Code(s): A41.9 - SEPSIS, UNSPECIFIED ORGANISM (5) UTI (urinary tract infection) Code(s): N39.0 - URINARY TRACT INFECTION, SITE NOT SPECIFIED Assessment/Plan PLAN Acute hypercapneic respiratpty failure HCA-pneumonia Sepsis UTI acute renal failure hyperkalemia ---iv antibiotics cultures pending renal sono noted ICU monitoring supportive care weaning trials if mental status improves Renal and ID eval Pt is DNR but agreed to intubation if only for a few days per ER notes Time spent 40 min
[2017-05-20] MEDS ORDERED: CEFTRIAXONE 50 ML IVPB SCH (10:00)
[2017-05-20] MEDS: LEVOTHYROXINE NA 150 MCG TABLET PO SCH (11:06)
[2017-05-20] MEDS: MUPIROCIN 2% TOPICAL OINTMENT FOR DECOLONIZATION NS SCH ×2 (11:07→21:43)
[2017-05-20] MEDS: METOPROLOL TARTRATE 25 MG TABLET (FP) PO SCH ×2 (11:08→21:45)
[2017-05-20] MEDS: ISOSORBIDE MONONITRATE 30 MG TAB.SR.24H (FP) PO SCH (11:09)
[2017-05-20] MEDS: dilTIAZem HCL 60 MG TABLET (FP) NGT SCH ×2 (11:12→22:00)
--- NOTE | 2017-05-20 11:30 | EKG ---
Test Reason : Blood Pressure : / mmHG Vent. Rate : 052 BPM Atrial Rate : 048 BPM P-R Int : 000 ms QRS Dur : 132 ms QT Int : 440 ms P-R-T Axes : 000 039 -56 degrees QTc Int : 409 ms UNDETERMINED RHYTHM , LIKELY ATRIAL FIBRILLATION WITH SLOW VENTRICULAR RESPONSE RIGHT BUNDLE BRANCH BLOCK T WAVE ABNORMALITY, CONSIDER INFEROLATERAL ISCHEMIA ABNORMAL ECG WHEN COMPARED WITH ECG OF 21-APR-2015 09:07, VENT. RATE HAS DECREASED Confirmed by ART TREVIZO, IMELDA ([id number]) on 05/20/2017 11:29:39 AM Referred By: Confirmed By:IMELDA CORDOVA MD
--- NOTE | 2017-05-20 11:36 | PN ---
Teaching Attending Note Name of Resident: Anupama Perry ATTENDING PHYSICIAN STATEMENT I saw and evaluated the patient. I reviewed the resident's note and discussed the case with the resident. I agree with the resident's findings and plan as documented. SUBJECTIVE: Pt seen and examined in the ICU. Remains intubated, sedated on propofol gtt. Vented on volume assist control. OBJECTIVE: Last Vital Signs Temp Pulse Resp BP Pulse Ox 98.6 F 101 H 20 129/65 99 05/20/17 07:00 05/20/17 10:29 05/20/17 10:29 05/20/17 10:29 05/20/17 09:25 Intake & Output 05/17/17 05/18/17 05/19/17 05/20/17 23:59 23:59 23:59 23:59 Intake Total 83 Output Total 100 800 Balance -100 -717 Weight 150 lb 163 lb 6.4 oz Gen: intubated, sedated Heart: tachycardic, irregular Lung: scattered rhonchi Abd: soft, nontender Ext: no edema CBC, BMP 05/20/17 05:20 05/20/17 05:20 Active Medications Chlorhexidine Gluconate (Hibiclens For Decolonization -) 1 applic TP HS [facility] Diltiazem HCl (Cardizem -) 120 mg NGT BID [facility] Last Admin: 05/20/17 11:12 Dose: 120 mg Heparin Sodium (Porcine) (Heparin -) 5,000 unit SQ TID [facility] Last Admin: 05/20/17 06:34 Dose: 5,000 unit Propofol (Diprivan -) 100 mls @ 2.041 mls/hr IVPB TITR MARY; 5 MCG/KG/MIN PRN Reason: Protocol Last Admin: 05/20/17 06:34 Dose: 6.124 mls/hr Famotidine/Sodium Chloride (Pepcid 20 Mg Premixed Ivpb -) 50 mls @ 100 mls/hr IVPB Q2D [facility] Isosorbide Mononitrate (Imdur -) 30 mg PO DAILY [facility] Last Admin: 05/20/17 11:09 Dose: 30 mg Levothyroxine Sodium (Synthroid -) 150 mcg PO DAILY@0700 [facility] Last Admin: 05/20/17 11:06 Dose: 150 mcg Metoprolol Tartrate (Lopressor -) 25 mg PO BID [facility] Last Admin: 05/20/17 11:08 Dose: 25 mg Mupirocin (Bactroban Ointment (For Decolonization) -) 1 applic NS BID [facility] Stop: 05/25/17 09:59 Last Admin: 05/20/17 11:07 Dose: 1 applic Piperacillin Sod/Tazobactam Sod (Zosyn 3.375gm Ivpb (Pre-Docked)) 3.375 gm IVPB BID MARY PRN Reason: Protocol Piperacillin Sod/Tazobactam Sod (Zosyn 3.375gm Ivpb (Pre-Docked)) 3.375 gm IVPB ONCE ONE PRN Reason: Protocol Stop: 05/20/17 10:16 ASSESSMENT AND PLAN: Acute Hypoxic and Hypercapneic Respiratory Failure UTI r/o Pneumonia Pulmonary HTN Atrial Fibrillation Acute Kidney Injury - continue antibiotics to cover health care acquired organisms - f/u cultures - IVF - monitor urine output, creatinine - calculate FeNa - rate control - hold sedation to assess mental status - spontaneous breathing trials as tolerated when mental status improved - DVT/GI prophylaxis - ICU monitoring critical care time spent in reviewing chart, evaluating patient and formulating plan 36 min
[2017-05-20] MEDS ORDERED: PIPERACILLIN/TAZOB 3.375 GM/50 ML PRE-DOCKED IVPB ONE (12:00)
[2017-05-20] MEDS: SODIUM CHLORIDE 1,000 ML IV SCH (12:29)
--- NOTE | 2017-05-20 13:53 | PN ---
Physical Exam: SUBJECTIVE: Patient seen and examined at bed side this morning. Sedated and Intubated 14/360/40/5 and propofol 20 Trying sedation vacation OBJECTIVE: Vital Signs Period Temp Pulse Resp BP Sys/Mcdaniels Pulse Ox Last 24 Hr 98.2 F-98.6 F 45-108 14-23 100-168/48-92 98-100 GENERAL: The patient is sedated and intubated. HEAD: Normal with no signs of trauma. EYES: PERRL, no pallor or icterus. ENT: Ears normal, moist mucous membranes. NECK: Supple. LUNGS: B/L coarse breath sounds equal, clear to auscultation bilaterally, no wheezes, no crackles, no accessory muscle use. HEART: Bradycardic, Irregularly irregular rate and rhythm, S1, S2 with soft systolic murmur. ABDOMEN: Soft, nontender, nondistended, normoactive bowel sounds, no guarding, no rebound, no hepatosplenomegaly, no masses. EXTREMITIES: 2+ pulses, warm, well-perfused, no edema. NEUROLOGICAL: No facial droop, Cranial nerves II through XII grossly intact. Normal speech, gait not observed. PSYCH: Normal mood, normal affect. SKIN: Warm, dry, normal turgor, no rashes or lesions noted Laboratory Results - last 24 hr 05/19/17 05/19/17 05/19/17 17:54 18:25 20:00 WBC RBC Hgb Hct MCV MCH MCHC RDW Plt Count MPV Neutrophils % Lymphocytes % Monocytes % Eosinophils % Basophils % Anticoagulation Therapy Cancelled Puncture Site Cancelled Patient Temperature Cancelled ABG pH Cancelled ABG pCO2 at Pt Temp Cancelled ABG pO2 at Pt Temp Cancelled ABG HCO3 Cancelled ABG O2 Sat (Measured) Cancelled ABG O2 Content Cancelled ABG Base Excess Cancelled Gonzalo Test Cancelled O2 Delivery Device Cancelled Oxygen Flow Rate Cancelled Vent Mode Cancelled Vent Rate Cancelled Mechanical Rate Cancelled PEEP Cancelled Pressure Support Vent Cancelled Sodium Potassium Chloride Carbon Dioxide Anion Gap BUN Creatinine Creat Clearance w eGFR POC Glucometer [phone] Random Glucose Lactic Acid 1.6 Calcium Total Bilirubin AST ALT Alkaline Phosphatase Total Protein Albumin Ur Random Sodium Ur Random Potassium Ur Random Chloride Urine Creatinine Digoxin 05/19/17 05/19/17 05/19/17 20:10 22:35 23:15 WBC RBC Hgb Hct MCV MCH MCHC RDW Plt Count MPV Neutrophils % Lymphocytes % Monocytes % Eosinophils % Basophils % Anticoagulation Therapy Puncture Site Patient Temperature ABG pH ABG pCO2 at Pt Temp ABG pO2 at Pt Temp ABG HCO3 ABG O2 Sat (Measured) ABG O2 Content ABG Base Excess Gonzalo Test O2 Delivery Device Oxygen Flow Rate Vent Mode Vent Rate Mechanical Rate PEEP Pressure Support Vent Sodium Potassium Cancelled 6.3 H* Chloride Carbon Dioxide Anion Gap BUN Creatinine Creat Clearance w eGFR POC Glucometer 127.56701 Random Glucose Lactic Acid Calcium Total Bilirubin AST ALT Alkaline Phosphatase Total Protein Albumin Ur Random Sodium Ur Random Potassium Ur Random Chloride Urine Creatinine Digoxin 05/19/17 05/19/17 05/19/17 23:55 23:58 23:58 WBC RBC Hgb Hct MCV MCH MCHC RDW Plt Count MPV Neutrophils % Lymphocytes % Monocytes % Eosinophils % Basophils % Anticoagulation Therapy Y Puncture Site Right radial Patient Temperature ABG pH 7.38 D ABG pCO2 at Pt Temp 38.9 D ABG pO2 at Pt Temp 218.0 H* D ABG HCO3 22.7 ABG O2 Sat (Measured) 100.0 H* ABG O2 Content 13.1 L ABG Base Excess -1.6 Gonzalo Test Positive O2 Delivery Device Vent Oxygen Flow Rate 70% Vent Mode Ac Vent Rate 5 Mechanical Rate Y PEEP Pressure Support Vent 500 Sodium Potassium Chloride Carbon Dioxide Anion Gap BUN Creatinine Creat Clearance w eGFR POC Glucometer Random Glucose Lactic Acid Calcium Total Bilirubin AST ALT Alkaline Phosphatase Total Protein Albumin Ur Random Sodium 34 Ur Random Potassium 66.4 Ur Random Chloride 37 Urine Creatinine 114.0 Digoxin 05/20/17 05/20/17 05/20/17 05:20 05:20 05:56 WBC 7.5 RBC 3.14 L Hgb 10.6 L Hct 31.7 L MCV 100.7 H MCH 33.8 H MCHC 33.6 RDW 15.9 H Plt Count 229 D MPV 7.7 Neutrophils % 72.0 Lymphocytes % 13.0 Monocytes % 11.5 H Eosinophils % 3.0 D Basophils % 0.5 Anticoagulation Therapy Puncture Site Patient Temperature ABG pH ABG pCO2 at Pt Temp ABG pO2 at Pt Temp ABG HCO3 ABG O2 Sat (Measured) ABG O2 Content ABG Base Excess Gonzalo Test O2 Delivery Device Oxygen Flow Rate Vent Mode Vent Rate Mechanical Rate PEEP Pressure Support Vent Sodium 140 Potassium 4.7 D Chloride 106 Carbon Dioxide 26 Anion Gap 8 BUN 63 H Creatinine 2.7 H D Creat Clearance w eGFR 16.59 POC Glucometer 124.24337 Random Glucose 106 D Lactic Acid Calcium 9.4 Total Bilirubin 0.5 D AST 32 D ALT 20 Alkaline Phosphatase 49 Total Protein 6.7 Albumin 3.2 L Ur Random Sodium Ur Random Potassium Ur Random Chloride Urine Creatinine Digoxin 0.5987 L 05/20/17 05/20/17 07:10 11:51 WBC RBC Hgb Hct MCV MCH MCHC RDW Plt Count MPV Neutrophils % Lymphocytes % Monocytes % Eosinophils % Basophils % Anticoagulation Therapy Puncture Site Right radial Patient Temperature ABG pH 7.49 H ABG pCO2 at Pt Temp 34.1 L ABG pO2 at Pt Temp 91.6 D ABG HCO3 25.7 ABG O2 Sat (Measured) 98.1 ABG O2 Content 14.5 L ABG Base Excess 2.9 H Gonzalo Test Positive O2 Delivery Device Vent Oxygen Flow Rate 40 Vent Mode A/c Vent Rate 20 Mechanical Rate Yes PEEP 5.0 Pressure Support Vent 360 Sodium Potassium Chloride Carbon Dioxide Anion Gap BUN Creatinine Creat Clearance w eGFR POC Glucometer 129.91380 Random Glucose Lactic Acid Calcium Total Bilirubin AST ALT Alkaline Phosphatase Total Protein Albumin Ur Random Sodium Ur Random Potassium Ur Random Chloride Urine Creatinine Digoxin Active Medications Generic Name Dose Route Start Last Admin Trade Name Jonathanq PRN Reason Stop Dose Admin Chlorhexidine Gluconate 1 applic 05/20/17 22:00 Hibiclens For Decolonization - TP HS MARY Diltiazem HCl 120 mg 05/20/17 10:00 05/20/17 11:12 Cardizem - NGT 120 mg BID MARY Administration Heparin Sodium (Porcine) 5,000 unit 05/20/17 06:00 05/20/17 13:04 Heparin - SQ 5,000 unit TID MARY Administration Propofol 100 mls @ 2.041 mls/hr 05/19/17 23:15 05/20/17 06:34 Diprivan - IVPB 6.124 mls/hr TITR MARY Administration Protocol 5 MCG/KG/MIN Famotidine/Sodium Chloride 50 mls @ 100 mls/hr 05/21/17 10:00 Pepcid 20 Mg Premixed Ivpb - IVPB Q2D MARY Sodium Chloride 1,000 mls @ 75 mls/hr 05/20/17 12:00 05/20/17 12:29 Normal Saline - IV 75 mls/hr ASDIR MARY Administration Isosorbide Mononitrate 30 mg 05/20/17 10:00 05/20/17 11:09 Imdur - PO 30 mg DAILY MARY Administration Levothyroxine Sodium 150 mcg 05/20/17 07:00 05/20/17 11:06 Synthroid - PO 150 mcg DAILY@0700 MARY Administration Metoprolol Tartrate 25 mg 05/19/17 22:00 05/20/17 11:08 Lopressor - PO 25 mg BID MARY Administration Mupirocin 1 applic 05/20/17 10:00 05/20/17 11:07 Bactroban Ointment (For Decolonization) - NS 05/25/17 09:59 1 applic BID MARY Administration Piperacillin Sod/Tazobactam Sod 3.375 gm 05/19/17 23:30 Zosyn 3.375gm Ivpb (Pre-Docked) IVPB BID [facility] Protocol ASSESSMENT/PLAN: Patient is an 89 year old female, nursing patient at [facility] with PMH of DM2, CKD stage 3, atherosclerothic heart disease, HTN, CHF, chronic anemia sent to the ED by EMS for altered mental status x1 day and likely fall without LOC. She was found to be hypoxic and hypercapenic hence intubated for airway protection and tranferred to the ICU for further management. Neurology AMS likely secondary to fall and UTI Head CT negative for any acute pathology Intubated settings @ 14/360/40/5, off propofol this morning Sedation vacation trials Renal Urinary tract infection UA 3 + LE, WBC 224 IV Zosyn Day 2, adjusted for renal failure Continue gentle hydration Pending urine culture, change antibiotics as per sensitivity Acute kidney injury most likely prerenal Fena- <1 Creatinine improved 3.7--->2.7 Continue IV NS @ 75mls.hr Pulmonary Questionable Saul care associated PNA Continue IV Zosyn, renally dosed CXR to be repeated in am Cardiology Atrial fibrillation-rate controlled On Cardizem 120mg BID, Metoprolol 25mg PO BID, became bradycardic after receiving medications, would consider adjusting it. Hypertension/Atherosclerotic heart disease Continue Isosorbide dinitrate Endocrinology Hypothyroidism Continue synthroid 150 mcg FEN IV NS @ 75mls.hr Electrolytes to be repeated in am NPO, hold enteral feeds for today Prophylaxis For DVT- Heparin 5000 U sq For GI- On Famotidine Code Status: DNR Dispo: Admitted in ICU. Duration of stay unknown. Case seen and discussed with Dr. Mejia. Visit type - Emergency Visit Emergency Visit: Yes ED Registration Date: 05/19/17 Care time: The patient presented to the Emergency Department on the above date and was hospitalized for further evaluation of their emergent condition. - New Patient This patient is new to me today: Yes Date on this admission: 05/20/17 - Critical Care Critical Care patient: Yes Total Critical Care Time (in minutes): 35 Critical Care Statement: The care of this patient involved high complexity decision making to prevent further life threatening deterioration of the patient 's condition and/or to evaluate & treat vital organ system(s) failure or risk of failure. - Discharge Referral Referred to [facility] Med P.C.: No
--- NOTE | 2017-05-20 13:56 | PN ---
Progress Note (short form) - Note Progress Note: ID Consult dictated Acute respiratory failure Possible HCAP UTI/ Possible sepsis secondary to UTI Toxic metabolic encephalopathy CKD Continue ventilatory support Pending sepsis workup, empiric coverage UTI/HCAP with Zosyn, adjusted for renal failure ICU monitoring Critical care time 35min
--- NOTE | 2017-05-20 15:18 | CONSULT ---
Consult Consult Specialty:: Nephrology Reason for Consultation:: jazz and hyperkalemia - History of Present Illness Chief Complaint: sent in from [place] for altered mental status History of Present Illness: Pt is an 89 year old female with pmhx of DM, CKD, CAD, CHF, anemia and HTN who was sent in to the ER from the [place]. She was intubated for respiratory distress. I was called to evaluate her for JAZZ. Pt was also found to be hyperkalemic. She is unable to give history so chart was reviewed. Pt is admitted to the ICU and is intubated and mechanically ventilated. - History Source History Provided By: Medical Record - Past Medical History Cardio/Vascular: Yes: AFIB, HTN, Hyperlipdemia Renal/: Yes: Renal Inusuff, UTI Endocrine: Yes: Diabetes Mellitus - Alcohol/Substance Use Hx Alcohol Use: No - Smoking History Smoking history: Never smoked - Social History Usual Living Arrangement: Alf ADL: Support Services History of Recent Travel: No Home Medications - Allergies Allergies/Adverse Reactions: Allergies Allergy/AdvReac Type Severity Reaction Status Date / Time No Known Allergies Allergy Unverified 05/19/17 14:32 - Home Medications Home Medications: Ambulatory Orders Acetaminophen [Tylenol -] 500 mg PO Q4H 05/19/17 Aspirin [ASA -] 81 mg PO DAILY 05/19/17 Calcium Carbonate/Vitamin D3 [Calcium 500 + Vit D 200 Caplet] 1 each PO DAILY Cholecalciferol (Vitamin D3) [Vitamin D3] 1,000 unit PO DAILY 05/19/17 Digoxin Oral Solution [Lanoxin Oral Solution -] 100 mcg PO ONCE 05/19/17 Diltiazem Cd [Cardizem Cd -] 240 mg PO DAILY 05/19/17 Folic Acid 1 mg PO DAILY 05/19/17 Furosemide [Lasix] 40 mg PO DAILY 05/19/17 Gabapentin 400 mg PO BID 05/19/17 Gabapentin [Neurontin -] 100 mg PO Q8H 05/19/17 Insulin Aspart [Novolog] 100 unit SQ ASDIR 05/19/17 Insulin Detemir [Levemir Flextouch] 43 unit SQ DAILY 05/19/17 Isosorbide Mononitrate [Isosorbide Mononitrate ER] 30 mg PO DAILY 05/19/17 Levothyroxine [Synthroid -] 125 mcg PO DAILY 05/19/17 Losartan Potassium [Cozaar -] 50 mg PO DAILY 05/19/17 Magnesium Hydrox 2400MG/30Ml [Milk of Magnesia -] 30 ml PO ONCE 05/19/17 Metformin HCl 500 mg PO DAILY 05/19/17 Metoprolol Tartrate 25 mg PO BID 05/19/17 Multivitamin [Poly-Vitamin] 1 each PO DAILY 05/19/17 Olmesartan Medoxomil 20 mg PO DAILY 05/19/17 Potassium Chloride 10 meq PO DAILY 05/19/17 Simvastatin [Zocor -] 5 mg PO HS 05/19/17 Thiamine HCl [Vitamin B-1] 100 mg PO DAILY 05/19/17 Family Disease History - Family Disease History Family History: Unable to Obtain Review of Systems Unable to obtain ROS, reason: intubated Physical Exam Vital Signs: Vital Signs Temperature 100.7 F H 05/20/17 14:00 Pulse Rate 55 L 05/20/17 14:00 Respiratory Rate 15 05/20/17 14:15 Blood Pressure 108/47 05/20/17 14:00 O2 Sat by Pulse Oximetry (%) 99 05/20/17 09:25 Constitutional: Yes: Calm Eyes: Yes: Conjunctiva Clear HENT: Yes: Atraumatic Cardiovascular: Yes: S1, S2 Respiratory: Yes: Mechanically Ventilated Gastrointestinal: Yes: Soft Renal/: Yes: [place] Present Musculoskeletal: Yes: Muscle Weakness Edema: Yes Edema: LUE: Trace, RUE: Trace, LLE: Trace, RLE: Trace Neurological: Yes: Lethargy Labs: CBC, BMP 05/20/17 05:20 05/20/17 05:20 Laboratory Tests 04/24/15 04/25/15 04/27/15 05:10 06:30 07:00 WBC Hgb Plt Count Sodium Potassium Chloride Carbon Dioxide Anion Gap BUN Creatinine 1.3 1.7 H D 1.6 H Ur Specific [place] Urine Protein 04/28/15 04/29/15 05/19/17 07:00 06:15 14:55 WBC Hgb 11.4 D Plt Count 302 Sodium Potassium Chloride Carbon Dioxide Anion Gap BUN Creatinine 1.2 D 0.9 D Ur Specific [place] Urine Protein 05/19/17 05/19/17 05/19/17 14:55 14:55 23:15 WBC Hgb Plt Count Sodium Potassium 7.6 H* D 6.3 H* Chloride Carbon Dioxide Anion Gap BUN 73 H D Creatinine 3.7 H D Ur Specific [place] >= 1.030 H Urine Protein 1+ H 05/20/17 05/20/17 05:20 05:20 WBC 7.5 Hgb 10.6 L Plt Count 229 D Sodium 140 Potassium 4.7 D Chloride 106 Carbon Dioxide 26 Anion Gap 8 BUN 63 H Creatinine 2.7 H D Ur Specific [place] Urine Protein Imaging - Results Chest X-ray: Report Reviewed Cat Scan: Report Reviewed Assessment/Plan Current Medications Generic Name Dose Route Start Last Admin Trade Name Freq PRN Reason Stop Dose Admin Chlorhexidine Gluconate 1 applic 05/20/17 22:00 Hibiclens For Decolonization - TP HS MARY Diltiazem HCl 120 mg 05/20/17 10:00 05/20/17 11:12 Cardizem - NGT 120 mg BID MARY Administration Heparin Sodium (Porcine) 5,000 unit 05/20/17 06:00 05/20/17 13:04 Heparin - SQ 5,000 unit TID MARY Administration Propofol 100 mls @ 2.041 mls/hr 05/19/17 23:15 05/20/17 06:34 Diprivan - IVPB 6.124 mls/hr TITR MARY Administration Protocol 5 MCG/KG/MIN Famotidine/Sodium Chloride 50 mls @ 100 mls/hr 05/21/17 10:00 Pepcid 20 Mg Premixed Ivpb - IVPB Q2D MARY Sodium Chloride 1,000 mls @ 75 mls/hr 05/20/17 12:00 05/20/17 12:29 Normal Saline - IV 75 mls/hr ASDIR MARY Administration Piperacillin Sod/Tazobactam Sod 50 mls @ 100 mls/hr 05/20/17 18:00 Zosyn 2.25gm Ivpb (Pre-Docked) IVPB Q8H-IV MARY Protocol Isosorbide Mononitrate 30 mg 05/20/17 10:00 05/20/17 11:09 Imdur - PO 30 mg DAILY MARY Administration Levothyroxine Sodium 150 mcg 05/20/17 07:00 05/20/17 11:06 Synthroid - PO 150 mcg DAILY@0700 MARY Administration Metoprolol Tartrate 25 mg 05/19/17 22:00 05/20/17 11:08 Lopressor - PO 25 mg BID MARY Administration Mupirocin 1 applic 05/20/17 10:00 05/20/17 11:07 Bactroban Ointment (For Decolonization) - NS 05/25/17 09:59 1 applic BID MARY Administration Laboratory Tests 05/19/17 14:55 Creatine Kinase 359 H Impression 1. JAZZ 2. hyperkalemia 3. acute resp failure 4. change in mental status 5. CKD 6. DM 7. HTN 8. CHF 9. CAD 10. anemia Plan - renal function is improving - potassium has normalized - FENa is 0.82 which is consistent with pre-renal disease - vent support - monitor urine output - cont with fluids - repeat ck level - will follow Dr Vallecillo
[2017-05-20] MEDS ORDERED: ACETAMINOPHEN 1000 MG/100 ML VIAL (NON FORMULARY) IVPB ONE (16:01)
[2017-05-20] MEDS: PIPERACILLIN/TAZOB 2.25 GM 50 ML IVPB SCH (18:09)
[2017-05-20] MEDS ORDERED: CHLORHEXIDINE GLUCONATE 4% CLEANSER FOR DECOLONIZATION TP SCH (22:00)
[2017-05-21] MEDS: PIPERACILLIN/TAZOB 2.25 GM 50 ML IVPB SCH ×3 (02:45→17:45)
[2017-05-21] MEDS: HEPARIN NA (PORCINE) 5,000 UNITS/ML 1ML VIAL SQ SCH ×3 (05:39→21:34)
[2017-05-21] MEDS: dilTIAZem HCL 60 MG TABLET (FP) NGT SCH ×3 (05:40→13:27)
[2017-05-21] MEDS: LEVOTHYROXINE NA 150 MCG TABLET PO SCH (06:25)
[2017-05-21 06:50] LABS: MCH 33.4 pg (25.7-33.7); MCHC 32.3 g/dl (32.0-36.0); MEAN CELL VOLUME 103.3 fl (80-96); MEAN PLT VOLUME 7.7 fl (7.5-11.1); PLATELET COUNT 228 K/MM3 (134-434); RDW 16.1 % (11.6-15.6)
[2017-05-21 07:20] LABS: ALBUMIN 2.9 g/dl (3.4-5.0); ANION GAP 8 (8-16); CALCIUM 8.3 mg/dL (8.5-10.1); CO2 28 mmol/L (21-32); GLUCOSE,RANDOM 100 mg/dL (74-106); MAGNESIUM 2.4 mg/dL (1.8-2.4)
[2017-05-21 07:23] LABS: ALK PHOS 44 U/L (45-117); BILIRUBIN,TOTAL 0.4 mg/dL (0.2-1.0); CREATININE 1.9 mg/dL (0.55-1.02); PHOSPHOROUS 4.2 mg/dL (2.5-4.9); SGOT/AST 30 U/L (15-37); SGPT/ALT 18 U/L (12-78); TOT PROT 6.6 g/dl (6.4-8.2)
[2017-05-21 07:24] LABS: ARTERIAL BLD GAS O2 SATURATION 99.1 % (90-98.9); ARTERIAL BLOOD GAS BASE EXCESS 0.2 meq/l (-2-2); ARTERIAL BLOOD GAS HCO3 25.4 meq/L (22-26); ARTERIAL BLOOD GAS pH 7.36 (7.35-7.45)
[2017-05-21 07:26] LABS: ALLENS TEST POSITIVE; ART PUNCT SITE RIGHT RADIAL; LPM/O2% 2.5; PT. ON O2? YES; TYPE OF O2 N/C
--- NOTE | 2017-05-21 08:47 | CONS ---
DATE OF CONSULTATION: DATE OF DICTATION: 05/20/2017 HISTORY OF PRESENT ILLNESS: The patient is a 89-year-old female evaluated for sepsis. History was obtained from the chart as she is presently intubated and unable to give a history. She was recently hospitalized at [facility] from April 20 through April 30. Her hospital course at that time was complicated by shortness of breath secondary to symptomatic anemia, altered mentation, suspected pneumonia, acute urinary retention, and E. coli urinary tract infection. She had received a course of ceftriaxone. [facility], with altered mental status. It was unclear whether she had suffered a stroke or was suffering from altered mental status secondary to toxic metabolic encephalopathy or cardiac event. Her clinical course was complicated by hypoxemia. She developed worsening labored breathing requiring a BiPAP mask. Despite those measures, she eventually became unresponsive and required intubation. At the present time, she is intubated in the intensive care unit. She is sedated. She was empirically treated with Zosyn for possible [id number] pneumonia versus possible recurrent urinary tract infection. At the present time, she is awake and alert. She is in no acute respiratory distress. She has been afebrile with a normal white blood cell count. PAST MEDICAL HISTORY: Positive for atrial fibrillation, hypothyroidism, hyperlipidemia, hypertension, diabetes mellitus, chronic kidney disease. ALLERGIES: No known allergies. MEDICATIONS: Include Lanoxin, Cardizem, Lasix, Neurontin, Glucotrol, isosorbide, Synthroid, Cozaar, Glucophage, Lopressor, Benicar, Zocor, Ecotrin. SOCIAL HISTORY: She is a jail resident. She is in a wheelchair, however, does ambulate with a walker. No active tobacco or alcohol use. SYSTEMS REVIEW: Neurologic: Positive for altered mental status. No seizure activity or focal weakness reported. Cardiac: Negative for chest pain or palpitations. Respiratory: As per HPI. Gastrointestinal: Negative for vomiting or diarrhea. Genitourinary: Positive for recent urinary tract infection. LABORATORY DATA: White count 7.6, hematocrit 31.7, platelet count 229. BUN 8, creatinine 2.7. Liver enzymes normal. Blood and urine cultures pending. Urinalysis 224 white cells. Chest x-ray showed some increased markings bilaterally. PHYSICAL EXAMINATION: General: She is awake and on a ventilator, in no acute respiratory distress. Vital signs: Temperature 98.6, blood pressure 131/58, pulse 58 and regular, respirations 23 per minute. HEENT: Sclerae anicteric. Patient is orally intubated. Neck: Supple. Heart: Heart sounds bradycardic, S1, S2. Lungs: Air entry bilaterally. Abdomen: Obese, soft, nontender. Extremities: Negative for edema. IMPRESSION: 1. Acute respiratory failure. 2. Possible nkbhlr-jgar-nfcvuqog pneumonia. 3. Urinary tract infection/possible sepsis secondary to urinary tract infection. 4. Toxic metabolic encephalopathy. 5. Chronic kidney disease. 6. Bradycardia. PLAN: Continue ventilatory support pending sepsis workup, empiric coverage for urinary tract infection/[id number]-reegltna pneumonia with Zosyn adjusted for renal failure, ICU monitoring. Prognosis is guarded. Will follow. Thank you for the kind referral. CRITICAL CARE TIME SPENT: 35 minutes. ASHISH SOLARES M.D. [id number]
[2017-05-21] MEDS ORDERED: PT OWN MED DRAWER 7, Y5N ONE (08:57)
[2017-05-21] MEDS: ISOSORBIDE MONONITRATE 30 MG TAB.SR.24H (FP) PO SCH (09:12)
[2017-05-21] MEDS: METOPROLOL TARTRATE 25 MG TABLET (FP) PO SCH ×2 (09:13→21:35)
[2017-05-21] MEDS: MUPIROCIN 2% TOPICAL OINTMENT FOR DECOLONIZATION NS SCH (09:14)
[2017-05-21] MEDS ORDERED: FAMOTIDINE 20 MG/50 ML IVPB 50 ML IVPB SCH (10:00)
--- NOTE | 2017-05-21 10:20 | PN ---
Progress Note, Physician Chief Complaint: extubated yesterday eating food No coughing awake and alert states shes fine - Current Medication List Current Medications: Active Medications Chlorhexidine Gluconate (Hibiclens For Decolonization -) 1 applic TP HS [facility] Last Admin: 05/20/17 21:45 Dose: 1 applic Diltiazem HCl (Cardizem -) 60 mg NGT Q6HPO [facility] Last Admin: 05/21/17 05:40 Dose: 60 mg Heparin Sodium (Porcine) (Heparin -) 5,000 unit SQ TID [facility] Last Admin: 05/21/17 05:39 Dose: 5,000 unit Famotidine/Sodium Chloride (Pepcid 20 Mg Premixed Ivpb -) 50 mls @ 100 mls/hr IVPB Q2D [facility] Last Admin: 05/21/17 09:47 Dose: 100 mls/hr Sodium Chloride (Normal Saline -) 1,000 mls @ 75 mls/hr IV ASDIR [facility] Last Admin: 05/20/17 12:29 Dose: 75 mls/hr Piperacillin Sod/Tazobactam Sod (Zosyn 2.25gm Ivpb (Pre-Docked)) 50 mls @ 100 mls/hr IVPB Q8H-IV [facility] PRN Reason: Protocol Last Admin: 05/21/17 09:06 Dose: 100 mls/hr Isosorbide Mononitrate (Imdur -) 30 mg PO DAILY [facility] Last Admin: 05/21/17 09:12 Dose: 30 mg Levothyroxine Sodium (Synthroid -) 150 mcg PO DAILY@0700 [facility] Last Admin: 05/21/17 06:25 Dose: 150 mcg Metoprolol Tartrate (Lopressor -) 25 mg PO BID [facility] Last Admin: 05/21/17 09:13 Dose: 25 mg Mupirocin (Bactroban Ointment (For Decolonization) -) 1 applic NS BID [facility] Stop: 05/25/17 09:59 Last Admin: 05/21/17 09:14 Dose: 1 applic - Objective Vital Signs: Vital Signs Temperature 98.3 F 05/21/17 06:00 Pulse Rate 74 05/21/17 09:24 Respiratory Rate 13 05/21/17 09:24 Blood Pressure 126/54 05/21/17 09:24 O2 Sat by Pulse Oximetry (%) 98 05/21/17 07:31 Constitutional: Yes: No Distress, Calm Cardiovascular: Yes: Pulse Irregular Respiratory: Yes: Diminished Gastrointestinal: Yes: Normal Bowel Sounds, Soft, Abdomen, Obese. No: Distention, Tenderness Edema: No Psychiatric: Yes: Alert, Oriented Labs: CBC, BMP 05/21/17 05:20 05/21/17 05:20 INR, PTT INR 1.43 (0.82-1.09) H 05/19/17 14:55 Problem List - Problems (1) Acute renal failure (ARF) Code(s): N17.9 - ACUTE KIDNEY FAILURE, UNSPECIFIED (2) Respiratory failure Code(s): J96.90 - RESPIRATORY FAILURE, UNSP, UNSP W HYPOXIA OR HYPERCAPNIA (3) Altered mental status Code(s): R41.82 - ALTERED MENTAL STATUS, UNSPECIFIED (4) Sepsis associated hypotension Code(s): A41.9 - SEPSIS, UNSPECIFIED ORGANISM (5) UTI (urinary tract infection) Code(s): N39.0 - URINARY TRACT INFECTION, SITE NOT SPECIFIED Assessment/Plan PLAN Acute hypercapneic respiratory failure HCA-pneumonia Sepsis UTI acute renal failure-- resolving s/p hyperkalemia ---iv antibiotics -- renal function improved cultures negative renal sono noted ok to transfer to floor supportive care Renal and ID eval noted Pt is DNR DVT prophylaxis-- Heparin sc
--- NOTE | 2017-05-21 11:37 | PN ---
Progress Note, Physician History of Present Illness: Extubated Awake, alert Comfortable appearing Smiling No complaints offerred Temps down afebrile WBC WNL - Current Medication List Current Medications: Active Medications Chlorhexidine Gluconate (Hibiclens For Decolonization -) 1 applic TP HS [facility] Last Admin: 05/20/17 21:45 Dose: 1 applic Diltiazem HCl (Cardizem -) 60 mg NGT Q6HPO [facility] Last Admin: 05/21/17 05:40 Dose: 60 mg Heparin Sodium (Porcine) (Heparin -) 5,000 unit SQ TID [facility] Last Admin: 05/21/17 05:39 Dose: 5,000 unit Famotidine/Sodium Chloride (Pepcid 20 Mg Premixed Ivpb -) 50 mls @ 100 mls/hr IVPB Q2D [facility] Last Admin: 05/21/17 09:47 Dose: 100 mls/hr Sodium Chloride (Normal Saline -) 1,000 mls @ 75 mls/hr IV ASDIR [facility] Last Admin: 05/20/17 12:29 Dose: 75 mls/hr Piperacillin Sod/Tazobactam Sod (Zosyn 2.25gm Ivpb (Pre-Docked)) 50 mls @ 100 mls/hr IVPB Q8H-IV [facility] PRN Reason: Protocol Last Admin: 05/21/17 09:06 Dose: 100 mls/hr Isosorbide Mononitrate (Imdur -) 30 mg PO DAILY [facility] Last Admin: 05/21/17 09:12 Dose: 30 mg Levothyroxine Sodium (Synthroid -) 150 mcg PO DAILY@0700 [facility] Last Admin: 05/21/17 06:25 Dose: 150 mcg Metoprolol Tartrate (Lopressor -) 25 mg PO BID [facility] Last Admin: 05/21/17 09:13 Dose: 25 mg Mupirocin (Bactroban Ointment (For Decolonization) -) 1 applic NS BID [facility] Stop: 05/25/17 09:59 Last Admin: 05/21/17 09:14 Dose: 1 applic - Objective Vital Signs: Vital Signs Temperature 98.9 F 05/21/17 10:20 Pulse Rate 76 05/21/17 10:20 Respiratory Rate 13 05/21/17 10:20 Blood Pressure 119/50 05/21/17 10:20 O2 Sat by Pulse Oximetry (%) 98 05/21/17 07:31 Constitutional: Yes: No Distress, Obese Cardiovascular: Yes: Regular Rate and Rhythm, S1, S2 Respiratory: Yes: Diminished Gastrointestinal: Yes: Normal Bowel Sounds, Soft, Abdomen, Obese. No: Tenderness Edema: No Labs: CBC, BMP 05/21/17 05:20 05/21/17 05:20 INR, PTT INR 1.43 (0.82-1.09) H 05/19/17 14:55 Assessment/Plan S/P acute respiratory failure- improved Possible pneumonia UTI Toxic metabolic encephalopathy- resolved CKD Await c/s Continue empiric zosyn, adjusted for renal function
[2017-05-21] MEDS: SODIUM CHLORIDE 1,000 ML IV SCH (12:45)
--- NOTE | 2017-05-21 12:59 | PN ---
Teaching Attending Note Name of Resident: David Deal ATTENDING PHYSICIAN STATEMENT I saw and evaluated the patient. I reviewed the resident's note and discussed the case with the resident. I agree with the resident's findings and plan as documented. SUBJECTIVE: Pt seen and examined in the ICU. Extubated yesterday without incident. Currently denies shortness of breath, chest pain, fevers or chills. Urine cultures growing gram negative bacilli. OBJECTIVE: Last Vital Signs Temp Pulse Resp BP Pulse Ox 98.9 F 69 22 135/89 97 05/21/17 10:20 05/21/17 12:00 05/21/17 12:00 05/21/17 12:00 05/21/17 10:40 Intake & Output 05/18/17 05/19/17 05/20/17 05/21/17 23:59 23:59 23:59 23:59 Intake Total 1058 775 Output Total 100 1900 500 Balance -100 -842 275 Weight 150 lb 163 lb 6.4 oz 160 lb 1 oz Gen: NAD at rest Heart: RRR Lung: decreased breath sounds at the bases Abd: soft, nontender Ext: no edema CBC, BMP 05/21/17 05:20 05/21/17 05:20 Active Medications Chlorhexidine Gluconate (Hibiclens For Decolonization -) 1 applic TP HS [facility] Last Admin: 05/20/17 21:45 Dose: 1 applic Diltiazem HCl (Cardizem -) 60 mg NGT Q6HPO [facility] Last Admin: 05/21/17 05:40 Dose: 60 mg Heparin Sodium (Porcine) (Heparin -) 5,000 unit SQ TID [facility] Last Admin: 05/21/17 05:39 Dose: 5,000 unit Famotidine/Sodium Chloride (Pepcid 20 Mg Premixed Ivpb -) 50 mls @ 100 mls/hr IVPB Q2D [facility] Last Admin: 05/21/17 09:47 Dose: 100 mls/hr Sodium Chloride (Normal Saline -) 1,000 mls @ 75 mls/hr IV ASDIR [facility] Last Admin: 05/21/17 12:45 Dose: 75 mls/hr Piperacillin Sod/Tazobactam Sod (Zosyn 2.25gm Ivpb (Pre-Docked)) 50 mls @ 100 mls/hr IVPB Q8H-IV [facility] PRN Reason: Protocol Last Admin: 05/21/17 09:06 Dose: 100 mls/hr Isosorbide Mononitrate (Imdur -) 30 mg PO DAILY [facility] Last Admin: 05/21/17 09:12 Dose: 30 mg Levothyroxine Sodium (Synthroid -) 150 mcg PO DAILY@0700 [facility] Last Admin: 05/21/17 06:25 Dose: 150 mcg Metoprolol Tartrate (Lopressor -) 25 mg PO BID [facility] Last Admin: 05/21/17 09:13 Dose: 25 mg Mupirocin (Bactroban Ointment (For Decolonization) -) 1 applic NS BID [facility] Stop: 05/25/17 09:59 Last Admin: 05/21/17 09:14 Dose: 1 applic ASSESSMENT AND PLAN: Acute Hypoxic and Hypercapneic Respiratory Failure improving UTI r/o Pneumonia Pulmonary HTN Atrial Fibrillation Acute Kidney Injury - continue antibiotics to cover health care acquired organisms - f/u cultures - IVF - monitor urine output, creatinine - rate control - PO as tolerated - DVT/GI prophylaxis - can monitor on floor critical care time spent in reviewing chart, evaluating patient and formulating plan 35 min
--- NOTE | 2017-05-21 15:27 | PN ---
Progress Note, Physician History of Present Illness: patient seen and examined at bedside feels well no complaints extubated yesterday now on room air - Current Medication List Current Medications: Active Medications Aspirin (Asa -) 81 mg PO DAILY [facility] Atorvastatin Calcium (Lipitor -) 5 mg PO HS [facility] Calcium Carbonate/Cholecalciferol (Os-Lars 500+D -) 1 tab PO DAILY [facility] Chlorhexidine Gluconate (Hibiclens For Decolonization -) 1 applic TP HS [facility] Last Admin: 05/20/17 21:45 Dose: 1 applic Diltiazem HCl (Cardizem Cd -) 240 mg PO DAILY [facility] Folic Acid (Folic Acid -) 1 mg PO DAILY [facility] Furosemide (Lasix -) 40 mg PO DAILY [facility] Heparin Sodium (Porcine) (Heparin -) 5,000 unit SQ TID [facility] Last Admin: 05/21/17 13:28 Dose: 5,000 unit Famotidine/Sodium Chloride (Pepcid 20 Mg Premixed Ivpb -) 50 mls @ 100 mls/hr IVPB Q2D [facility] Last Admin: 05/21/17 09:47 Dose: 100 mls/hr Sodium Chloride (Normal Saline -) 1,000 mls @ 75 mls/hr IV ASDIR [facility] Last Admin: 05/21/17 12:45 Dose: 75 mls/hr Piperacillin Sod/Tazobactam Sod (Zosyn 2.25gm Ivpb (Pre-Docked)) 50 mls @ 100 mls/hr IVPB Q8H-IV [facility] PRN Reason: Protocol Last Admin: 05/21/17 09:06 Dose: 100 mls/hr Isosorbide Mononitrate (Imdur -) 30 mg PO DAILY [facility] Levothyroxine Sodium (Synthroid -) 150 mcg PO DAILY@0700 [facility] Last Admin: 05/21/17 06:25 Dose: 150 mcg Losartan Potassium (Cozaar -) 50 mg PO DAILY [facility] Metoprolol Tartrate (Lopressor -) 25 mg PO BID [facility] Last Admin: 05/21/17 09:13 Dose: 25 mg Metoprolol Tartrate (Lopressor -) 25 mg PO BID [facility] Mupirocin (Bactroban Ointment (For Decolonization) -) 1 applic NS BID [facility] Stop: 05/25/17 09:59 Last Admin: 05/21/17 09:14 Dose: 1 applic - Objective Vital Signs: Vital Signs Temperature 98.9 F 05/21/17 10:20 Pulse Rate 69 05/21/17 12:00 Respiratory Rate 22 05/21/17 12:00 Blood Pressure 135/89 05/21/17 12:00 O2 Sat by Pulse Oximetry (%) 97 05/21/17 10:40 Constitutional: Yes: Well Nourished, No Distress, Calm Eyes: Yes: Conjunctiva Clear HENT: Yes: Atraumatic, Normocephalic Neck: Yes: Supple, Trachea Midline Cardiovascular: Yes: Regular Rate and Rhythm Respiratory: Yes: CTA Bilaterally Gastrointestinal: Yes: Normal Bowel Sounds, Soft. No: Tenderness Edema: No Psychiatric: Yes: Alert Labs: CBC, BMP 05/21/17 05:20 05/21/17 05:20 INR, PTT INR 1.43 (0.82-1.09) H 05/19/17 14:55 Assessment/Plan 89F with history of DM2, CKD stage 3, atherosclerothic heart disease, HTN, CHF, chronic anemia who presented to the ED s/p fall and was intubated for airway protection. altered mental status: possible infectious encephalopathy resolved likely secondary to UTI Urinary tract infection: continue for zosyn f/u UCx GNB preliminary Acute kidney injury on CKD most likely prerenal Cr improving today is 1.9 continue gentle hydration renally dose all meds PNA: continue zosyn possible HCAP CXR in AM f/u sputum Cx Afib: currently rate controlled continue imdur continue metoprolol patient was not anticoagulated as outpatient continue aspirin continue cozaar HLD: continue statin hypothyroidism: continue home dose of Synthroid per primary team continue Anemia: transfuse PRN so far Hb stable and no need for transfusion FEN IV NS @ 42mls.hr no electrolyte issues Diabetic diet Prophylaxis For DVT- Heparin 5000 U sq For GI- On Famotidine PT consult Transfer to med/surg CCTime 35 min
--- NOTE | 2017-05-21 16:14 | PN ---
Progress Note, Physician History of Present Illness: Pt seen and examined at bedside. She is now extubated. She is awake and alert. She denies shortness of breath. - Current Medication List Current Medications: Active Medications Aspirin (Asa -) 81 mg PO DAILY [facility] Atorvastatin Calcium (Lipitor -) 5 mg PO HS [facility] Calcium Carbonate/Cholecalciferol (Os-Lars 500+D -) 1 tab PO DAILY [facility] Chlorhexidine Gluconate (Hibiclens For Decolonization -) 1 applic TP HS [facility] Last Admin: 05/20/17 21:45 Dose: 1 applic Diltiazem HCl (Cardizem Cd -) 240 mg PO DAILY [facility] Folic Acid (Folic Acid -) 1 mg PO DAILY [facility] Furosemide (Lasix -) 40 mg PO DAILY [facility] Heparin Sodium (Porcine) (Heparin -) 5,000 unit SQ TID [facility] Last Admin: 05/21/17 13:28 Dose: 5,000 unit Famotidine/Sodium Chloride (Pepcid 20 Mg Premixed Ivpb -) 50 mls @ 100 mls/hr IVPB Q2D [facility] Last Admin: 05/21/17 09:47 Dose: 100 mls/hr Sodium Chloride (Normal Saline -) 1,000 mls @ 75 mls/hr IV ASDIR [facility] Last Admin: 05/21/17 12:45 Dose: 75 mls/hr Piperacillin Sod/Tazobactam Sod (Zosyn 2.25gm Ivpb (Pre-Docked)) 50 mls @ 100 mls/hr IVPB Q8H-IV [facility] PRN Reason: Protocol Last Admin: 05/21/17 09:06 Dose: 100 mls/hr Isosorbide Mononitrate (Imdur -) 30 mg PO DAILY [facility] Levothyroxine Sodium (Synthroid -) 150 mcg PO DAILY@0700 [facility] Last Admin: 05/21/17 06:25 Dose: 150 mcg Losartan Potassium (Cozaar -) 50 mg PO DAILY [facility] Metoprolol Tartrate (Lopressor -) 25 mg PO BID [facility] Last Admin: 05/21/17 09:13 Dose: 25 mg Metoprolol Tartrate (Lopressor -) 25 mg PO BID [facility] Mupirocin (Bactroban Ointment (For Decolonization) -) 1 applic NS BID [facility] Stop: 05/25/17 09:59 Last Admin: 05/21/17 09:14 Dose: 1 applic - Objective Vital Signs: Vital Signs Temperature 98.2 F 05/21/17 14:00 Pulse Rate 70 05/21/17 14:00 Respiratory Rate 22 05/21/17 14:00 Blood Pressure 129/62 05/21/17 14:00 O2 Sat by Pulse Oximetry (%) 97 05/21/17 10:40 Constitutional: Yes: Calm Eyes: Yes: Conjunctiva Clear HENT: Yes: Atraumatic Cardiovascular: Yes: S1, S2 Respiratory: Yes: On Nasal O2 Gastrointestinal: Yes: Soft, Abdomen, Obese Genitourinary: Yes: Lewis Present Edema: No Neurological: Yes: Oriented Psychiatric: Yes: Oriented Labs: CBC, BMP 05/21/17 05:20 05/21/17 05:20 INR, PTT INR 1.43 (0.82-1.09) H 05/19/17 14:55 Problem List - Problems (1) Acute renal failure (ARF) Code(s): N17.9 - ACUTE KIDNEY FAILURE, UNSPECIFIED (2) Diabetes Code(s): E11.9 - TYPE 2 DIABETES MELLITUS WITHOUT COMPLICATIONS (3) Respiratory failure Code(s): J96.90 - RESPIRATORY FAILURE, UNSP, UNSP W HYPOXIA OR HYPERCAPNIA Assessment/Plan Current Medications Generic Name Dose Route Start Last Admin Trade Name Zeferino PRN Reason Stop Dose Admin Aspirin 81 mg 05/22/17 10:00 Asa - PO DAILY [facility] Atorvastatin Calcium 5 mg 05/21/17 22:00 Lipitor - PO HS [facility] Calcium Carbonate/Cholecalciferol 1 tab 05/22/17 10:00 Os-Lars 500+D - PO DAILY [facility] Chlorhexidine Gluconate 1 applic 05/20/17 22:00 05/20/17 21:45 Hibiclens For Decolonization - TP 1 applic HS [facility] Administration Diltiazem HCl 240 mg 05/22/17 10:00 Cardizem Cd - PO DAILY [facility] Folic Acid 1 mg 05/22/17 10:00 Folic Acid - PO DAILY [facility] Furosemide 40 mg 05/22/17 10:00 Lasix - PO DAILY [facility] Heparin Sodium (Porcine) 5,000 unit 05/20/17 06:00 05/21/17 13:28 Heparin - SQ 5,000 unit TID [facility] Administration Famotidine/Sodium Chloride 50 mls @ 100 mls/hr 05/21/17 10:00 08/22/17 09:47 Pepcid 20 Mg Premixed Ivpb - IVPB 100 mls/hr Q2D [facility] Administration Sodium Chloride 1,000 mls @ 75 mls/hr 05/20/17 12:00 05/21/17 12:45 Normal Saline - IV 75 mls/hr ASDIR [facility] Administration Piperacillin Sod/Tazobactam Sod 50 mls @ 100 mls/hr 05/20/17 18:00 05/21/17 09: 06 Zosyn 2.25gm Ivpb (Pre-Docked) IVPB 100 mls/hr Q8H-IV [facility] Administration Protocol Isosorbide Mononitrate 30 mg 05/22/17 10:00 Imdur - PO DAILY [facility] Levothyroxine Sodium 150 mcg 05/20/17 07:00 05/21/17 06:25 Synthroid - PO 150 mcg DAILY@0700 [facility] Administration Losartan Potassium 50 mg 05/22/17 10:00 Cozaar - PO DAILY [facility] Metoprolol Tartrate 25 mg 05/19/17 22:00 05/21/17 09:13 Lopressor - PO 25 mg BID [facility] Administration Metoprolol Tartrate 25 mg 05/21/17 22:00 Lopressor - PO BID [facility] Mupirocin 1 applic 05/20/17 10:00 05/21/17 09:14 Bactroban Ointment (For Decolonization) - NS 05/25/17 09:59 1 applic BID [facility] Administration Impression 1. JAZZ 2. hyperkalemia 3. acute resp failure 4. change in mental status 5. CKD 6. DM 7. HTN 8. CHF 9. CAD 10. anemia Plan - renal function is improving - change fluids to 1/2 ns and decrease rate - repeat labs in am - monitor pulse ox - can d/c lewis - will follow Dr Vallecillo
[2017-05-21] MEDS ORDERED: SODIUM CHLORIDE 0.45% 1,000 ML IV SCH (16:15)
[2017-05-21] MEDS: ATORVASTATIN CA 10 MG TABLET (FP) PO SCH (21:34)
[2017-05-21] MEDS ORDERED: CHLORHEXIDINE GLUCONATE 4% CLEANSER FOR DECOLONIZATION TP SCH (22:00)
[2017-05-21] MEDS ORDERED: METOPROLOL TARTRATE 25 MG TABLET (FP) PO SCH ×2 (22:00)
[2017-05-21] MEDS ORDERED: MUPIROCIN 2% TOPICAL OINTMENT FOR DECOLONIZATION NS SCH (22:00)
[2017-05-21] MEDS ORDERED: ATORVASTATIN CA 10 MG TABLET (FP) PO SCH (22:00)
[2017-05-22] MEDS ORDERED: PIPERACILLIN/TAZOB 2.25 GM 50 ML IVPB SCH (02:00)
[2017-05-22] MEDS: HEPARIN NA (PORCINE) 5,000 UNITS/ML 1ML VIAL SQ SCH ×3 (06:00→21:25)
[2017-05-22] MEDS ORDERED: LEVOTHYROXINE NA 125 MCG TABLET (FP) PO SCH (07:00)
[2017-05-22] MEDS: LEVOTHYROXINE NA 150 MCG TABLET PO SCH (07:00)
[2017-05-22 07:40] LABS: MCH 32.5 pg (25.7-33.7); MCHC 32.1 g/dl (32.0-36.0); MEAN CELL VOLUME 101.2 fl (80-96); MEAN PLT VOLUME 7.5 fl (7.5-11.1); PLATELET COUNT 256 K/MM3 (134-434); RDW 15.7 % (11.6-15.6); WHITE BLOOD COUNT 10.2 K/mm3 (4.0-10.0)
[2017-05-22 07:59] LABS: ANION GAP 7 (8-16); CALCIUM 8.8 mg/dL (8.5-10.1); CO2 26 mmol/L (21-32); CREATININE 1.4 mg/dL (0.55-1.02); GLUCOSE,RANDOM 198 mg/dL (74-106); MAGNESIUM 2.4 mg/dL (1.8-2.4); PHOSPHOROUS 2.2 mg/dL (2.5-4.9)
[2017-05-22] MEDS: LOSARTAN POTASSIUM 50 MG TABLET (FP) PO SCH (09:30)
[2017-05-22] MEDS: ISOSORBIDE MONONITRATE 30 MG TAB.SR.24H (FP) PO SCH (09:30)
[2017-05-22] MEDS: CALCIUM 500MG/VIT-D 200 UNITS COMBO TABLET (FP) PO SCH (09:30)
[2017-05-22] MEDS: FOLIC ACID 1 MG TABLET (FP) PO SCH (09:30)
[2017-05-22] MEDS: METOPROLOL TARTRATE 25 MG TABLET (FP) PO SCH ×2 (09:30→21:26)
[2017-05-22] MEDS: ASPIRIN 81 MG CHEWABLE TABLETS PO SCH (09:30)
[2017-05-22] MEDS ORDERED: FUROSEMIDE 40 MG/4 ML INJECTABLE VIAL IVPB ONE (09:48)
[2017-05-22] MEDS ORDERED: DEXTROSE 5%-WATER - 50 ML IVPB ONE ×2 (09:57→18:24)
[2017-05-22] MEDS ORDERED: PIPERACILLIN/TAZOBACTAM 2.25 GM VIAL IVPB ONE ×2 (09:57→18:24)
[2017-05-22] MEDS ORDERED: LOSARTAN POTASSIUM 50 MG TABLET (FP) PO SCH (10:00)
[2017-05-22] MEDS ORDERED: FUROSEMIDE 40 MG TABLET (FP) PO SCH (10:00)
[2017-05-22] MEDS ORDERED: FOLIC ACID 1 MG TABLET (FP) PO SCH (10:00)
[2017-05-22] MEDS ORDERED: ISOSORBIDE MONONITRATE 30 MG TAB.SR.24H (FP) PO SCH (10:00)
[2017-05-22] MEDS ORDERED: ASPIRIN 81 MG CHEWABLE TABLETS PO SCH (10:00)
[2017-05-22] MEDS ORDERED: CALCIUM 500MG/VIT-D 200 UNITS COMBO TABLET (FP) PO SCH (10:00)
[2017-05-22] MEDS: PIPERACILLIN/TAZOB 2.25 GM 2.25 GM in DEXTROSE 5%-WATER - 50 ML IVPB SCH ×2 (10:05→18:30)
[2017-05-22] MEDS: FUROSEMIDE 40 MG TABLET (FP) PO SCH (10:06)
--- NOTE | 2017-05-22 11:06 | PN ---
Progress Note, Physician Chief Complaint: niece at bedside pt removing her O2 seems confused today appetite is less - Current Medication List Current Medications: Active Medications Aspirin (Asa -) 81 mg PO DAILY [facility] Last Admin: 05/22/17 09:30 Dose: 81 mg Atorvastatin Calcium (Lipitor -) 10 mg PO HS [facility] Last Admin: 05/21/17 21:34 Dose: 10 mg Calcium Carbonate/Cholecalciferol (Os-Lars 500+D -) 1 tab PO DAILY [facility] Last Admin: 05/22/17 09:30 Dose: 1 tab Diltiazem HCl (Cardizem Cd -) 240 mg PO DAILY [facility] Last Admin: 05/22/17 09:31 Dose: 240 mg Folic Acid (Folic Acid -) 1 mg PO DAILY [facility] Last Admin: 05/22/17 09:30 Dose: 1 mg Furosemide (Lasix -) 40 mg PO DAILY [facility] Last Admin: 05/22/17 10:06 Dose: Not Given Heparin Sodium (Porcine) (Heparin -) 5,000 unit SQ TID [facility] Last Admin: 05/22/17 06:00 Dose: 5,000 unit Famotidine/Sodium Chloride (Pepcid 20 Mg Premixed Ivpb -) 50 mls @ 100 mls/hr IVPB Q2D [facility] Piperacillin Sod/Tazobactam (Sod 2.25 gm/ Dextrose) 50 mls @ 100 mls/hr IVPB Q8H-IV [facility] PRN Reason: Protocol Last Admin: 05/22/17 10:05 Dose: 100 mls/hr Isosorbide Mononitrate (Imdur -) 30 mg PO DAILY [facility] Last Admin: 05/22/17 09:30 Dose: 30 mg Levothyroxine Sodium (Synthroid -) 150 mcg PO DAILY@0700 [facility] Last Admin: 05/22/17 07:00 Dose: 150 mcg Losartan Potassium (Cozaar -) 50 mg PO DAILY [facility] Last Admin: 05/22/17 09:30 Dose: 50 mg Metoprolol Tartrate (Lopressor -) 25 mg PO BID [facility] Last Admin: 05/22/17 09:30 Dose: 25 mg - Objective Vital Signs: Vital Signs Temperature 98 F 05/22/17 07:51 Pulse Rate 90 05/22/17 07:51 Respiratory Rate 18 05/22/17 07:51 Blood Pressure 121/76 05/22/17 07:51 O2 Sat by Pulse Oximetry (%) 97 05/21/17 22:00 Constitutional: Yes: No Distress, Calm Cardiovascular: Yes: Pulse Irregular Respiratory: Yes: Diminished, Rales Gastrointestinal: Yes: Normal Bowel Sounds, Abdomen, Obese, Hemorrhoids. No: Distention, Tenderness Edema: No Psychiatric: Yes: Alert Labs: CBC, BMP 05/22/17 06:38 05/22/17 06:38 INR, PTT INR 1.43 (0.82-1.09) H 05/19/17 14:55 Problem List - Problems (1) Acute renal failure (ARF) Code(s): N17.9 - ACUTE KIDNEY FAILURE, UNSPECIFIED (2) Respiratory failure Code(s): J96.90 - RESPIRATORY FAILURE, UNSP, UNSP W HYPOXIA OR HYPERCAPNIA (3) Altered mental status Code(s): R41.82 - ALTERED MENTAL STATUS, UNSPECIFIED (4) Sepsis associated hypotension Code(s): A41.9 - SEPSIS, UNSPECIFIED ORGANISM (5) UTI (urinary tract infection) Code(s): N39.0 - URINARY TRACT INFECTION, SITE NOT SPECIFIED Assessment/Plan PLAN Acute hypercapneic respiratory failure HCA-pneumonia Sepsis UTI acute renal failure-- resolving s/p hyperkalemia ---iv antibiotics -- renal function improved cultures negative dc lewis O2 continuous check CXR today dc fluids give IV lasix x 1-- pt sounds congested today supportive care Pt is DNR DVT prophylaxis-- Heparin sc
--- NOTE | 2017-05-22 11:30 | EKG ---
Test Reason : Blood Pressure : / mmHG Vent. Rate : 127 BPM Atrial Rate : 136 BPM P-R Int : 000 ms QRS Dur : 122 ms QT Int : 288 ms P-R-T Axes : 000 011 192 degrees QTc Int : 418 ms ATRIAL FIBRILLATION WITH RAPID VENTRICULAR RESPONSE RIGHT BUNDLE BRANCH BLOCK T WAVE ABNORMALITY, CONSIDER LATERAL ISCHEMIA ABNORMAL ECG WHEN COMPARED WITH ECG OF 19-MAY-2017 14:51, PREVIOUS ECG HAS UNDETERMINED RHYTHM, NEEDS REVIEW ST NOW DEPRESSED IN ANTERIOR LEADS NONSPECIFIC T WAVE ABNORMALITY HAS REPLACED INVERTED T WAVES IN INFERIOR LEADS T WAVE INVERSION MORE EVIDENT IN LATERAL LEADS Confirmed by MINNIE CAT MD ([id number]) on 05/22/2017 11:30:08 AM Referred By: Meena EDUARDO Confirmed By:MINNIE CAT MD
--- NOTE | 2017-05-22 12:47 | PN ---
Progress Note (short form) - Note Progress Note: PULMONARY REMAINS CONFUSED "I RETIRED TODAY AFTER 47 YEARS" FAMILY PRESENT OFFERS NO COMPLAINTS ANICTERIC DISTANT BUT CLEAR BREATH SOUNDS S1S2 BS+ NO EDEMA LABS/MEDS/NOTES/IMAGING/MICRO REVIEWED Acute Hypoxic and Hypercapneic Respiratory Failure improving UTI r/o Pneumonia Pulmonary HTN Atrial Fibrillation Acute Kidney Injury improving - continue antibiotics - f/u cultures - IVF - monitor urine output, creatinine - rate control - PO as tolerated - DVT/GI prophylaxis - monitor BP/HR Moni CANELA MD
--- NOTE | 2017-05-22 12:57 | PN ---
Progress Note, Physician History of Present Illness: Awake, alert Slightly confused No complaints Breathing on nasal cannula non-labored Desats off O2 Temps down afebrile Renal function improved - Current Medication List Current Medications: Active Medications Aspirin (Asa -) 81 mg PO DAILY [facility] Last Admin: 05/22/17 09:30 Dose: 81 mg Atorvastatin Calcium (Lipitor -) 10 mg PO HS [facility] Last Admin: 05/21/17 21:34 Dose: 10 mg Calcium Carbonate/Cholecalciferol (Os-Lars 500+D -) 1 tab PO DAILY [facility] Last Admin: 05/22/17 09:30 Dose: 1 tab Diltiazem HCl (Cardizem Cd -) 240 mg PO DAILY [facility] Last Admin: 05/22/17 09:31 Dose: 240 mg Folic Acid (Folic Acid -) 1 mg PO DAILY [facility] Last Admin: 05/22/17 09:30 Dose: 1 mg Furosemide (Lasix -) 40 mg PO DAILY [facility] Last Admin: 05/22/17 10:06 Dose: Not Given Heparin Sodium (Porcine) (Heparin -) 5,000 unit SQ TID [facility] Last Admin: 05/22/17 06:00 Dose: 5,000 unit Famotidine/Sodium Chloride (Pepcid 20 Mg Premixed Ivpb -) 50 mls @ 100 mls/hr IVPB Q2D [facility] Piperacillin Sod/Tazobactam (Sod 2.25 gm/ Dextrose) 50 mls @ 100 mls/hr IVPB Q8H-IV [facility] PRN Reason: Protocol Last Admin: 05/22/17 10:05 Dose: 100 mls/hr Isosorbide Mononitrate (Imdur -) 30 mg PO DAILY [facility] Last Admin: 05/22/17 09:30 Dose: 30 mg Levothyroxine Sodium (Synthroid -) 150 mcg PO DAILY@0700 [facility] Last Admin: 05/22/17 07:00 Dose: 150 mcg Losartan Potassium (Cozaar -) 50 mg PO DAILY [facility] Last Admin: 05/22/17 09:30 Dose: 50 mg Metoprolol Tartrate (Lopressor -) 25 mg PO BID [facility] Last Admin: 05/22/17 09:30 Dose: 25 mg - Objective Vital Signs: Vital Signs Temperature 98.9 F 05/22/17 10:00 Pulse Rate 132 H 05/22/17 10:00 Respiratory Rate 18 05/22/17 10:00 Blood Pressure 183/98 05/22/17 10:00 O2 Sat by Pulse Oximetry (%) 97 05/21/17 22:00 Constitutional: Yes: No Distress, Obese Eyes: Yes: Conjunctiva Clear Cardiovascular: Yes: Regular Rate and Rhythm, S1, S2 Respiratory: Yes: Diminished Gastrointestinal: Yes: Normal Bowel Sounds, Soft, Abdomen, Obese. No: Tenderness Edema: Yes Labs: CBC, BMP 05/22/17 06:38 05/22/17 06:38 INR, PTT INR 1.43 (0.82-1.09) H 05/19/17 14:55 Assessment/Plan S/P acute respiratory failure- improved Possible pneumonia UTI Toxic metabolic encephalopathy- resolved CKD improved Continue empiric zosyn, adjusted for renal function
--- NOTE | 2017-05-22 13:20 | PN ---
Progress Note, Physician History of Present Illness: Pt seen and examined at bedside. She is awake and alert. She is tolerating diet. - Current Medication List Current Medications: Active Medications Aspirin (Asa -) 81 mg PO DAILY [facility] Last Admin: 05/22/17 09:30 Dose: 81 mg Atorvastatin Calcium (Lipitor -) 10 mg PO HS [facility] Last Admin: 05/21/17 21:34 Dose: 10 mg Calcium Carbonate/Cholecalciferol (Os-Lars 500+D -) 1 tab PO DAILY [facility] Last Admin: 05/22/17 09:30 Dose: 1 tab Diltiazem HCl (Cardizem Cd -) 240 mg PO DAILY [facility] Last Admin: 05/22/17 09:31 Dose: 240 mg Folic Acid (Folic Acid -) 1 mg PO DAILY [facility] Last Admin: 05/22/17 09:30 Dose: 1 mg Furosemide (Lasix -) 40 mg PO DAILY [facility] Last Admin: 05/22/17 10:06 Dose: Not Given Heparin Sodium (Porcine) (Heparin -) 5,000 unit SQ TID [facility] Last Admin: 05/22/17 06:00 Dose: 5,000 unit Famotidine/Sodium Chloride (Pepcid 20 Mg Premixed Ivpb -) 50 mls @ 100 mls/hr IVPB Q2D MARY Piperacillin Sod/Tazobactam (Sod 2.25 gm/ Dextrose) 50 mls @ 100 mls/hr IVPB Q8H-IV MARY PRN Reason: Protocol Last Admin: 05/22/17 10:05 Dose: 100 mls/hr Isosorbide Mononitrate (Imdur -) 30 mg PO DAILY [facility] Last Admin: 05/22/17 09:30 Dose: 30 mg Levothyroxine Sodium (Synthroid -) 150 mcg PO DAILY@0700 [facility] Last Admin: 05/22/17 07:00 Dose: 150 mcg Losartan Potassium (Cozaar -) 50 mg PO DAILY [facility] Last Admin: 05/22/17 09:30 Dose: 50 mg Metoprolol Tartrate (Lopressor -) 25 mg PO BID [facility] Last Admin: 05/22/17 09:30 Dose: 25 mg - Objective Vital Signs: Vital Signs Temperature 98.9 F 05/22/17 10:00 Pulse Rate 132 H 05/22/17 10:00 Respiratory Rate 18 05/22/17 10:00 Blood Pressure 183/98 05/22/17 10:00 O2 Sat by Pulse Oximetry (%) 97 05/21/17 22:00 Constitutional: Yes: Calm Eyes: Yes: Conjunctiva Clear HENT: Yes: Atraumatic Cardiovascular: Yes: S1, S2 Respiratory: Yes: CTA Bilaterally Gastrointestinal: Yes: Soft, Abdomen, Obese Genitourinary: Yes: WNL Edema: No Neurological: Yes: Oriented Psychiatric: Yes: Oriented Labs: CBC, BMP 05/22/17 06:38 05/22/17 06:38 INR, PTT INR 1.43 (0.82-1.09) H 05/19/17 14:55 Problem List - Problems (1) Acute renal failure (ARF) Code(s): N17.9 - ACUTE KIDNEY FAILURE, UNSPECIFIED (2) Diabetes Code(s): E11.9 - TYPE 2 DIABETES MELLITUS WITHOUT COMPLICATIONS (3) Respiratory failure Code(s): J96.90 - RESPIRATORY FAILURE, UNSP, UNSP W HYPOXIA OR HYPERCAPNIA Assessment/Plan Current Medications Generic Name Dose Route Start Last Admin Trade Name Zeferino PRN Reason Stop Dose Admin Aspirin 81 mg 05/22/17 10:00 05/22/17 09:30 Asa - PO 81 mg DAILY MARY Administration Atorvastatin Calcium 10 mg 05/21/17 22:00 05/21/17 21:34 Lipitor - PO 10 mg HS MARY Administration Calcium Carbonate/Cholecalciferol 1 tab 05/22/17 10:00 05/22/17 09:30 Os-Lars 500+D - PO 1 tab DAILY MARY Administration Diltiazem HCl 240 mg 05/22/17 10:00 05/22/17 09:31 Cardizem Cd - PO 240 mg DAILY MARY Administration Folic Acid 1 mg 05/22/17 10:00 05/22/17 09:30 Folic Acid - PO 1 mg DAILY MARY Administration Furosemide 40 mg 05/22/17 10:00 05/22/17 10:06 Lasix - PO Not Given DAILY MARY Heparin Sodium (Porcine) 5,000 unit 05/21/17 22:00 05/22/17 06:00 Heparin - SQ 5,000 unit TID MARY Administration Famotidine/Sodium Chloride 50 mls @ 100 mls/hr 05/23/17 10:00 Pepcid 20 Mg Premixed Ivpb - IVPB Q2D MARY Piperacillin Sod/Tazobactam 50 mls @ 100 mls/hr 05/22/17 09:44 05/22/17 10:05 Sod 2.25 gm/ Dextrose IVPB 100 mls/hr Q8H-IV MARY Administration Protocol Isosorbide Mononitrate 30 mg 05/22/17 10:00 05/22/17 09:30 Imdur - PO 30 mg DAILY MARY Administration Levothyroxine Sodium 150 mcg 05/22/17 07:00 05/22/17 07:00 Synthroid - PO 150 mcg DAILY@0700 MARY Administration Losartan Potassium 50 mg 05/22/17 10:00 05/22/17 09:30 Cozaar - PO 50 mg DAILY MARY Administration Metoprolol Tartrate 25 mg 05/21/17 22:00 05/22/17 09:30 Lopressor - PO 25 mg BID MARY Administration Impression 1. JAZZ 2. hyperkalemia 3. acute resp failure 4. change in mental status 5. CKD 6. DM 7. HTN 8. CHF 9. CAD 10. anemia Plan - renal function stabilizing - can stop fluids - can d/c lewis - voiding trial - repeat labs in am - discussed with nurse and pts family - will follow Dr Vallecillo
[2017-05-22] MEDS: ATORVASTATIN CA 10 MG TABLET (FP) PO SCH (21:26)
[2017-05-23] MEDS ORDERED: PIPERACILLIN/TAZOBACTAM 2.25 GM VIAL IVPB ONE ×2 (02:03→09:35)
[2017-05-23] MEDS ORDERED: DEXTROSE 5%-WATER - 50 ML IVPB ONE (02:04)
[2017-05-23] MEDS: PIPERACILLIN/TAZOB 2.25 GM 2.25 GM in DEXTROSE 5%-WATER - 50 ML IVPB SCH ×2 (02:58→09:32)
[2017-05-23] MEDS ORDERED: PT OWN MED DRAWER 7, Y5N ONE ×2 (05:54→21:03)
[2017-05-23] MEDS: HEPARIN NA (PORCINE) 5,000 UNITS/ML 1ML VIAL SQ SCH ×3 (06:35→21:13)
[2017-05-23] MEDS: LEVOTHYROXINE NA 150 MCG TABLET PO SCH (06:35)
[2017-05-23 08:57] LABS: MCH 33.1 pg (25.7-33.7); MCHC 32.5 g/dl (32.0-36.0); MEAN CELL VOLUME 101.9 fl (80-96); MEAN PLT VOLUME 6.9 fl (7.5-11.1); PLATELET COUNT 215 K/MM3 (134-434); RDW 15.6 % (11.6-15.6); WHITE BLOOD COUNT 9.2 K/mm3 (4.0-10.0)
[2017-05-23 09:22] LABS: ANION GAP 7 (8-16); CALCIUM 8.8 mg/dL (8.5-10.1); CO2 29 mmol/L (21-32); CREATININE 1.2 mg/dL (0.55-1.02); GLUCOSE,RANDOM 153 mg/dL (74-106)
[2017-05-23] MEDS: FOLIC ACID 1 MG TABLET (FP) PO SCH (09:37)
[2017-05-23] MEDS: LOSARTAN POTASSIUM 50 MG TABLET (FP) PO SCH (09:38)
[2017-05-23] MEDS: CALCIUM 500MG/VIT-D 200 UNITS COMBO TABLET (FP) PO SCH (09:38)
[2017-05-23] MEDS: ASPIRIN 81 MG CHEWABLE TABLETS PO SCH (09:38)
[2017-05-23] MEDS: FUROSEMIDE 40 MG TABLET (FP) PO SCH (09:38)
[2017-05-23] MEDS: ISOSORBIDE MONONITRATE 30 MG TAB.SR.24H (FP) PO SCH (09:38)
[2017-05-23] MEDS: METOPROLOL TARTRATE 25 MG TABLET (FP) PO SCH ×2 (09:38→21:14)
[2017-05-23] MEDS ORDERED: FAMOTIDINE 20 MG/50 ML IVPB 50 ML IVPB SCH (10:00)
--- NOTE | 2017-05-23 11:34 | PN ---
Progress Note, Physician Chief Complaint: sleepy today was awake all night-- pulling out her iv lines and refusing care per staff. No distress today poor po intake no SOB niece at bedside - Current Medication List Current Medications: Active Medications Aspirin (Asa -) 81 mg PO DAILY [facility] Last Admin: 05/23/17 09:38 Dose: 81 mg Atorvastatin Calcium (Lipitor -) 10 mg PO HS [facility] Last Admin: 05/22/17 21:26 Dose: 10 mg Calcium Carbonate/Cholecalciferol (Os-Lars 500+D -) 1 tab PO DAILY [facility] Last Admin: 05/23/17 09:38 Dose: 1 tab Diltiazem HCl (Cardizem Cd -) 240 mg PO DAILY [facility] Last Admin: 05/23/17 09:39 Dose: 240 mg Folic Acid (Folic Acid -) 1 mg PO DAILY [facility] Last Admin: 05/23/17 09:37 Dose: 1 mg Furosemide (Lasix -) 40 mg PO DAILY [facility] Last Admin: 05/23/17 09:38 Dose: 40 mg Heparin Sodium (Porcine) (Heparin -) 5,000 unit SQ TID [facility] Last Admin: 05/23/17 06:35 Dose: Not Given Famotidine/Sodium Chloride (Pepcid 20 Mg Premixed Ivpb -) 50 mls @ 100 mls/hr IVPB Q2D [facility] Last Admin: 05/23/17 09:39 Dose: 100 mls/hr Piperacillin Sod/Tazobactam (Sod 2.25 gm/ Dextrose) 50 mls @ 100 mls/hr IVPB Q8H-IV [facility] PRN Reason: Protocol Last Admin: 05/23/17 09:32 Dose: 100 mls/hr Isosorbide Mononitrate (Imdur -) 30 mg PO DAILY [facility] Last Admin: 05/23/17 09:38 Dose: 30 mg Levothyroxine Sodium (Synthroid -) 150 mcg PO DAILY@0700 [facility] Last Admin: 05/23/17 06:35 Dose: Not Given Losartan Potassium (Cozaar -) 50 mg PO DAILY [facility] Last Admin: 05/23/17 09:38 Dose: 50 mg Metoprolol Tartrate (Lopressor -) 25 mg PO BID [facility] Last Admin: 05/23/17 09:38 Dose: 25 mg - Objective Vital Signs: Vital Signs Temperature 98.3 F 05/22/17 22:00 Pulse Rate 100 H 08/23/17 22:00 Respiratory Rate 17 05/22/17 22:00 Blood Pressure 167/69 05/22/17 22:00 O2 Sat by Pulse Oximetry (%) 97 05/22/17 21:00 Constitutional: Yes: No Distress Cardiovascular: Yes: Regular Rate and Rhythm Respiratory: Yes: Diminished Gastrointestinal: Yes: Normal Bowel Sounds, Soft, Abdomen, Obese. No: Distention, Tenderness Edema: Yes Edema: LLE: Trace, RLE: Trace Labs: CBC, BMP 05/23/17 08:35 05/23/17 08:35 INR, PTT INR 1.43 (0.82-1.09) H 05/19/17 14:55 Problem List - Problems (1) Acute renal failure (ARF) Code(s): N17.9 - ACUTE KIDNEY FAILURE, UNSPECIFIED (2) Respiratory failure Code(s): J96.90 - RESPIRATORY FAILURE, UNSP, UNSP W HYPOXIA OR HYPERCAPNIA (3) Altered mental status Code(s): R41.82 - ALTERED MENTAL STATUS, UNSPECIFIED (4) Sepsis associated hypotension Code(s): A41.9 - SEPSIS, UNSPECIFIED ORGANISM (5) UTI (urinary tract infection) Code(s): N39.0 - URINARY TRACT INFECTION, SITE NOT SPECIFIED Assessment/Plan PLAN Acute hypercapneic respiratory failure HCA-pneumonia Sepsis UTI acute renal failure-- resolving s/p hyperkalemia ---iv antibiotics -- renal function improving -- check ABG today cultures negative O2 continuous CXR noted supportive care Pt is DNR DVT prophylaxis-- Heparin sc
--- NOTE | 2017-05-23 12:47 | PN ---
Progress Note, Physician History of Present Illness: pulmonary alert,nad on nasal cannula o2 sat 98% - Current Medication List Current Medications: Active Medications Aspirin (Asa -) 81 mg PO DAILY [facility] Last Admin: 05/23/17 09:38 Dose: 81 mg Atorvastatin Calcium (Lipitor -) 10 mg PO HS [facility] Last Admin: 05/22/17 21:26 Dose: 10 mg Calcium Carbonate/Cholecalciferol (Os-Lars 500+D -) 1 tab PO DAILY [facility] Last Admin: 05/23/17 09:38 Dose: 1 tab Diltiazem HCl (Cardizem Cd -) 240 mg PO DAILY [facility] Last Admin: 05/23/17 09:39 Dose: 240 mg Folic Acid (Folic Acid -) 1 mg PO DAILY [facility] Last Admin: 05/23/17 09:37 Dose: 1 mg Furosemide (Lasix -) 40 mg PO DAILY [facility] Last Admin: 05/23/17 09:38 Dose: 40 mg Heparin Sodium (Porcine) (Heparin -) 5,000 unit SQ TID [facility] Last Admin: 05/23/17 06:35 Dose: Not Given Piperacillin Sod/Tazobactam (Sod 2.25 gm/ Dextrose) 50 mls @ 100 mls/hr IVPB Q8H-IV [facility] PRN Reason: Protocol Last Admin: 05/23/17 09:32 Dose: 100 mls/hr Insulin Aspart (Novolog Vial Sliding Scale -) 1 vial SQ BIDAC [facility] PRN Reason: Protocol Isosorbide Mononitrate (Imdur -) 30 mg PO DAILY [facility] Last Admin: 05/23/17 09:38 Dose: 30 mg Levothyroxine Sodium (Synthroid -) 150 mcg PO DAILY@0700 [facility] Last Admin: 05/23/17 06:35 Dose: Not Given Losartan Potassium (Cozaar -) 50 mg PO DAILY [facility] Last Admin: 05/23/17 09:38 Dose: 50 mg Metoprolol Tartrate (Lopressor -) 25 mg PO BID [facility] Last Admin: 05/23/17 09:38 Dose: 25 mg Ranitidine HCl (Zantac -) 150 mg PO BID [facility] - Objective Vital Signs: Vital Signs Temperature 98.3 F 05/22/17 22:00 Pulse Rate 100 H 05/22/17 22:00 Respiratory Rate 17 05/22/17 22:00 Blood Pressure 167/69 05/22/17 22:00 O2 Sat by Pulse Oximetry (%) 97 05/22/17 21:00 Constitutional: Yes: Calm, Thin Eyes: Yes: WNL HENT: Yes: WNL Neck: Yes: WNL Cardiovascular: Yes: Pulse Irregular, S1, S2 Respiratory: Yes: Diminished Gastrointestinal: Yes: Normal Bowel Sounds, Soft Extremities: Yes: WNL Edema: No Labs: CBC, BMP 05/23/17 08:35 05/23/17 08:35 INR, PTT INR 1.43 (0.82-1.09) H 05/19/17 14:55 Assessment/Plan ASSESSMENT AND PLAN: Acute Hypoxic and Hypercapneic Respiratory Failure improving UTI r/o Pneumonia Pulmonary HTN Atrial Fibrillation Acute Kidney Injury - continue antibiotics - IVF - monitor urine output, creatinine - rate control - PO as tolerated - DVT/GI prophylaxis DR NOE
--- NOTE | 2017-05-23 13:42 | PN ---
Progress Note, Physician History of Present Illness: Awake, alert Mildly confused No acute distress Breathing non-labored Afebrile WBC WNL BC (-) - Current Medication List Current Medications: Active Medications Aspirin (Asa -) 81 mg PO DAILY [facility] Last Admin: 05/23/17 09:38 Dose: 81 mg Atorvastatin Calcium (Lipitor -) 10 mg PO HS [facility] Last Admin: 05/22/17 21:26 Dose: 10 mg Calcium Carbonate/Cholecalciferol (Os-Lars 500+D -) 1 tab PO DAILY [facility] Last Admin: 05/23/17 09:38 Dose: 1 tab Diltiazem HCl (Cardizem Cd -) 240 mg PO DAILY [facility] Last Admin: 05/23/17 09:39 Dose: 240 mg Folic Acid (Folic Acid -) 1 mg PO DAILY [facility] Last Admin: 05/23/17 09:37 Dose: 1 mg Furosemide (Lasix -) 40 mg PO DAILY [facility] Last Admin: 05/23/17 09:38 Dose: 40 mg Heparin Sodium (Porcine) (Heparin -) 5,000 unit SQ TID [facility] Last Admin: 05/23/17 06:35 Dose: Not Given Piperacillin Sod/Tazobactam (Sod 2.25 gm/ Dextrose) 50 mls @ 100 mls/hr IVPB Q8H-IV [facility] PRN Reason: Protocol Last Admin: 05/23/17 09:32 Dose: 100 mls/hr Insulin Aspart (Novolog Vial Sliding Scale -) 1 vial SQ BIDAC [facility] PRN Reason: Protocol Isosorbide Mononitrate (Imdur -) 30 mg PO DAILY [facility] Last Admin: 05/23/17 09:38 Dose: 30 mg Levothyroxine Sodium (Synthroid -) 150 mcg PO DAILY@0700 [facility] Last Admin: 05/23/17 06:35 Dose: Not Given Losartan Potassium (Cozaar -) 50 mg PO DAILY [facility] Last Admin: 05/23/17 09:38 Dose: 50 mg Metoprolol Tartrate (Lopressor -) 25 mg PO BID [facility] Last Admin: 05/23/17 09:38 Dose: 25 mg Ranitidine HCl (Zantac -) 150 mg PO BID [facility] - Objective Vital Signs: Vital Signs Temperature 98.3 F 05/22/17 22:00 Pulse Rate 100 H 05/22/17 22:00 Respiratory Rate 17 05/22/17 22:00 Blood Pressure 167/69 05/22/17 22:00 O2 Sat by Pulse Oximetry (%) 97 05/22/17 21:00 Constitutional: Yes: No Distress Eyes: Yes: Conjunctiva Clear Cardiovascular: Yes: Regular Rate and Rhythm, S1, S2 Respiratory: Yes: Diminished Gastrointestinal: Yes: Normal Bowel Sounds, Soft, Abdomen, Obese. No: Tenderness Labs: CBC, BMP 05/23/17 08:35 05/23/17 08:35 INR, PTT INR 1.43 (0.82-1.09) H 05/19/17 14:55 Assessment/Plan S/P acute respiratory failure- improved Possible pneumonia UTI Toxic metabolic encephalopathy- resolved CKD improved Substitute ceftin 250mg po bid x 3days
--- NOTE | 2017-05-23 14:17 | PN ---
Progress Note, Physician History of Present Illness: Pt seen and examined at bedside. She is awake and alert. She denies shortness of breath. - Current Medication List Current Medications: Active Medications Aspirin (Asa -) 81 mg PO DAILY [facility] Last Admin: 05/23/17 09:38 Dose: 81 mg Atorvastatin Calcium (Lipitor -) 10 mg PO HS [facility] Last Admin: 05/22/17 21:26 Dose: 10 mg Calcium Carbonate/Cholecalciferol (Os-Lars 500+D -) 1 tab PO DAILY [facility] Last Admin: 05/23/17 09:38 Dose: 1 tab Cefuroxime Axetil (Ceftin -) 250 mg PO BID [facility] Diltiazem HCl (Cardizem Cd -) 240 mg PO DAILY [facility] Last Admin: 05/23/17 09:39 Dose: 240 mg Folic Acid (Folic Acid -) 1 mg PO DAILY [facility] Last Admin: 05/23/17 09:37 Dose: 1 mg Furosemide (Lasix -) 40 mg PO DAILY [facility] Last Admin: 05/23/17 09:38 Dose: 40 mg Heparin Sodium (Porcine) (Heparin -) 5,000 unit SQ TID [facility] Last Admin: 05/23/17 06:35 Dose: Not Given Insulin Aspart (Novolog Vial Sliding Scale -) 1 vial SQ BIDAC [facility] PRN Reason: Protocol Isosorbide Mononitrate (Imdur -) 30 mg PO DAILY [facility] Last Admin: 05/23/17 09:38 Dose: 30 mg Levothyroxine Sodium (Synthroid -) 150 mcg PO DAILY@0700 [facility] Last Admin: 05/23/17 06:35 Dose: Not Given Losartan Potassium (Cozaar -) 50 mg PO DAILY [facility] Last Admin: 05/23/17 09:38 Dose: 50 mg Metoprolol Tartrate (Lopressor -) 25 mg PO BID [facility] Last Admin: 05/23/17 09:38 Dose: 25 mg Ranitidine HCl (Zantac -) 150 mg PO BID [facility] - Objective Vital Signs: Vital Signs Temperature 98.3 F 05/22/17 22:00 Pulse Rate 100 H 05/22/17 22:00 Respiratory Rate 17 05/22/17 22:00 Blood Pressure 167/69 05/22/17 22:00 O2 Sat by Pulse Oximetry (%) 97 05/22/17 21:00 Constitutional: Yes: Calm Eyes: Yes: Conjunctiva Clear Cardiovascular: Yes: S1, S2 Respiratory: Yes: CTA Bilaterally, On Nasal O2 Gastrointestinal: Yes: Soft Genitourinary: Yes: WNL Musculoskeletal: Yes: WNL Edema: No Neurological: Yes: Oriented Psychiatric: Yes: Oriented Labs: CBC, BMP 05/23/17 08:35 05/23/17 08:35 INR, PTT INR 1.43 (0.82-1.09) H 05/19/17 14:55 Problem List - Problems (1) Acute renal failure (ARF) Code(s): N17.9 - ACUTE KIDNEY FAILURE, UNSPECIFIED (2) Diabetes Code(s): E11.9 - TYPE 2 DIABETES MELLITUS WITHOUT COMPLICATIONS (3) Respiratory failure Code(s): J96.90 - RESPIRATORY FAILURE, UNSP, UNSP W HYPOXIA OR HYPERCAPNIA Assessment/Plan Current Medications Generic Name Dose Route Start Last Admin Trade Name Freq PRN Reason Stop Dose Admin Aspirin 81 mg 05/22/17 10:00 05/23/17 09:38 Asa - PO 81 mg DAILY MARY Administration Atorvastatin Calcium 10 mg 05/21/17 22:00 05/22/17 21:26 Lipitor - PO 10 mg HS MARY Administration Calcium Carbonate/Cholecalciferol 1 tab 05/22/17 10:00 05/23/17 09:38 Os-Lars 500+D - PO 1 tab DAILY MARY Administration Cefuroxime Axetil 250 mg 05/23/17 14:30 Ceftin - PO BID MARY Diltiazem HCl 240 mg 05/22/17 10:00 05/23/17 09:39 Cardizem Cd - PO 240 mg DAILY MARY Administration Folic Acid 1 mg 05/22/17 10:00 05/23/17 09:37 Folic Acid - PO 1 mg DAILY MARY Administration Furosemide 40 mg 05/22/17 10:00 05/23/17 09:38 Lasix - PO 40 mg DAILY MARY Administration Heparin Sodium (Porcine) 5,000 unit 05/21/17 22:00 05/23/17 06:35 Heparin - SQ Not Given TID [facility] Insulin Aspart 1 vial 05/23/17 16:30 Novolog Vial Sliding Scale - SQ BIDAC [facility] Protocol Isosorbide Mononitrate 30 mg 05/22/17 10:00 05/23/17 09:38 Imdur - PO 30 mg DAILY MARY Administration Levothyroxine Sodium 150 mcg 05/22/17 07:00 05/23/17 06:35 Synthroid - PO Not Given DAILY@0700 MARY Losartan Potassium 50 mg 05/22/17 10:00 05/23/17 09:38 Cozaar - PO 50 mg DAILY MARY Administration Metoprolol Tartrate 25 mg 05/21/17 22:00 05/23/17 09:38 Lopressor - PO 25 mg BID MARY Administration Ranitidine HCl 150 mg 05/23/17 22:00 Zantac - PO BID [facility] Impression 1. JAZZ 2. hyperkalemia 3. acute resp failure 4. change in mental status 5. CKD 6. DM 7. HTN 8. CHF 9. CAD 10. anemia Plan - repeat bmp in am - renal function is improving and is near baseline - pt did void after lewis removed - cont with lasix - will follow Dr Vallecillo
[2017-05-23] MEDS: CEFUROXIME AXETIL 250 MG TABLET PO SCH ×2 (17:32→21:14)
[2017-05-23] MEDS: INSULIN SLIDING SCALE (NOVOLOG) 1 VIAL SQ SCH (17:32)
[2017-05-23] MEDS: RANITIDINE HCL 150 MG TABLET (FP) PO SCH (21:14)
[2017-05-23] MEDS: ATORVASTATIN CA 10 MG TABLET (FP) PO SCH (21:14)
[2017-05-24] MEDS: INSULIN SLIDING SCALE (NOVOLOG) 1 VIAL SQ SCH (06:05)
[2017-05-24] MEDS: LEVOTHYROXINE NA 150 MCG TABLET PO SCH (06:05)
[2017-05-24] MEDS: HEPARIN NA (PORCINE) 5,000 UNITS/ML 1ML VIAL SQ SCH (06:05)
[2017-05-24 07:38] LABS: ANION GAP 8 (8-16); CALCIUM 8.5 mg/dL (8.5-10.1); CO2 31 mmol/L (21-32); CREATININE 1.2 mg/dL (0.55-1.02); GLUCOSE,RANDOM 148 mg/dL (74-106)
--- NOTE | 2017-05-24 09:26 | DS ---
Physical Examination Vital Signs: Vital Signs Temperature 97.5 F L 05/24/17 06:00 Pulse Rate 78 05/24/17 06:00 Respiratory Rate 16 05/24/17 06:00 Blood Pressure 141/76 05/24/17 06:00 O2 Sat by Pulse Oximetry (%) 95 05/23/17 21:00 Findings/Remarks: pt seen/ examined chart reviewed pt feels well denies cp. breathing stable alert and awake. wants to go back to [facility]. Constitutional: Yes: No Distress, Calm Neck: Yes: Supple Respiratory: Yes: Diminished Gastrointestinal: Yes: Normal Bowel Sounds, Soft Edema: LLE: Trace, RLE: Trace Neurological: Yes: Alert Psychiatric: Yes: Alert Labs: CBC, BMP 05/23/17 08:35 05/24/17 06:15 Discharge Summary Reason For Visit: ACUTE RENAL FAILURE RESPIRATORY FAILURE Current Active Problems Acute renal failure (ARF) (Acute) Diabetes (Acute) Respiratory failure (Acute) Sepsis associated hypotension (Acute) UTI (urinary tract infection) (Acute) Hospital Course: admitted for sob/ hypercapnic failure intubated==successfully extubated now stable no need for abg at this time- meds reconcilled . discussed with nursing staff condition improved but gaurded decrease dose of levemir for now and monitor in alf discharge diagnosis are S/P acute respiratory failure- improved Possible pneumonia UTI Toxic metabolic encephalopathy- resolved CKD improved d/c time 35 min in examining/ documenting and coordating care. Condition: Improved - Instructions Referrals: Kika De La O MD [Primary Care Provider] - Disposition: [facility] FACILITY - Home Medications Comprehensive Discharge Medication List: Ambulatory Orders Acetaminophen [Tylenol .Extra-Strength -] 500 mg PO Q4H 05/19/17 Aspirin [ASA -] 81 mg PO DAILY 05/19/17 Calcium Carbonate/Vitamin D3 [Calcium 500-Vit D3 200 Caplet] 1 each PO DAILY Cholecalciferol (Vitamin D3) [Vitamin D3] 1,000 unit PO DAILY 05/19/17 Diltiazem Cd [Cardizem Cd -] 240 mg PO DAILY 05/19/17 Folic Acid 1 mg PO DAILY 05/19/17 Furosemide [Lasix] 40 mg PO DAILY 05/19/17 Gabapentin 400 mg PO BID 05/19/17 Gabapentin [Neurontin -] 100 mg PO Q8H 05/19/17 Insulin Aspart [Novolog Flexpen] 100 unit SQ ASDIR 05/19/17 Insulin Detemir [Levemir Flextouch] 43 unit SQ DAILY 05/19/17 Isosorbide Mononitrate [Isosorbide Mononitrate ER] 30 mg PO DAILY 05/19/17 Losartan Potassium [Cozaar -] 50 mg PO DAILY 05/19/17 Magnesium Hydrox 2400MG/30Ml [Milk of Magnesia -] 30 ml PO ONCE 05/19/17 Metformin HCl 500 mg PO DAILY 05/19/17 Metoprolol Tartrate 25 mg PO BID 05/19/17 Multivitamin [Poly-Vitamin] 1 each PO DAILY 05/19/17 Olmesartan Medoxomil 20 mg PO DAILY 05/19/17 Potassium Chloride 10 meq PO DAILY 05/19/17 Simvastatin [Zocor -] 5 mg PO HS 05/19/17 Thiamine HCl [Vitamin B-1] 100 mg PO DAILY 05/19/17 Heparin - 5,000 unit SQ TID vial 05/24/17 Levothyroxine [Synthroid -] 150 mcg PO DAILY@0700 tablet 05/24/17 Metoprolol Tartrate [Lopressor -] 25 mg PO BID tablet 05/24/17 Ranitidine [Zantac -] 150 mg PO BID tablet 05/24/17
[2017-05-24] MEDS ORDERED: PT OWN MED DRAWER 7, Y5N ONE (10:38)
[2017-05-24] MEDS: CALCIUM 500MG/VIT-D 200 UNITS COMBO TABLET (FP) PO SCH (10:40)
[2017-05-24] MEDS: LOSARTAN POTASSIUM 50 MG TABLET (FP) PO SCH (10:40)
[2017-05-24] MEDS: ASPIRIN 81 MG CHEWABLE TABLETS PO SCH (10:40)
[2017-05-24] MEDS: RANITIDINE HCL 150 MG TABLET (FP) PO SCH (10:40)
[2017-05-24] MEDS: ISOSORBIDE MONONITRATE 30 MG TAB.SR.24H (FP) PO SCH (10:41)
[2017-05-24] MEDS: FOLIC ACID 1 MG TABLET (FP) PO SCH (10:41)
[2017-05-24] MEDS: METOPROLOL TARTRATE 25 MG TABLET (FP) PO SCH (10:41)
[2017-05-24] MEDS: CEFUROXIME AXETIL 250 MG TABLET PO SCH (10:41)
[2017-05-24] MEDS: FUROSEMIDE 40 MG TABLET (FP) PO SCH (10:41)
[2017-05-24 12:23] VITALS: BP 164/90; PULSE 80; TEMP 98.4
== END 2017-05-24 11:38 | DRG 871 ==
LOC: JER 14:27 → JERBED 16:52 → JICU 05-20 00:15 → J5S 05-21 20:07
PROVIDERS: ADMIT Internal Medicine; ATTEND Internal Medicine
PROC: 5A1935Z Respiratory Ventilation, Less than 24 Consecutive Hours (ICD-10-PCS; principal; 2017-05-19)
PROC: 0BH17EZ Insertion of Endotracheal Airway into Trachea, Via Natural or Artificial Opening (ICD-10-PCS; 2017-05-19)
DX: A41.9 Sepsis, unspecified organism (principal); J96.02 Acute respiratory failure with hypercapnia; J96.01 Acute respiratory failure with hypoxia; G92 Toxic encephalopathy; J18.9 Pneumonia, unspecified organism; I13.0 Hypertensive heart and chronic kidney disease with heart failure and stage 1 through stage 4 chronic kidney disease, or unspecified chronic kidney disease; N17.9 Acute kidney failure, unspecified; N39.0 Urinary tract infection, site not specified; I50.22 Chronic systolic (congestive) heart failure; D64.9 Anemia, unspecified; E11.22 Type 2 diabetes mellitus with diabetic chronic kidney disease; I12.9 Hypertensive chronic kidney disease with stage 1 through stage 4 chronic kidney disease, or unspecified chronic kidney disease; N18.3 Chronic kidney disease, stage 3 (moderate); Z79.4 Long term (current) use of insulin; E78.4 Other hyperlipidemia; E66.9 Obesity, unspecified; I27.2 Other secondary pulmonary hypertension; I25.10 Atherosclerotic heart disease of native coronary artery without angina pectoris; E87.5 Hyperkalemia; I48.91 Unspecified atrial fibrillation; Y95 Nosocomial condition; E03.9 Hypothyroidism, unspecified; Z66 Do not resuscitate; R00.1 Bradycardia, unspecified; Z68.32 Body mass index [BMI] 32.0-32.9, adult
CPT/HCPCS: 31500; 36415; 36600; 70450-TC; 71010-TC; 76775-TC; 76856-TC; 80048; 80053; 80162; 81003; 81015; 82375; 82436; 82553; 82570; 82803; 83050; 83605; 83735; 83880; 84100; 84132; 84133; 84300; 84484; 85025; 85027; 85610; 85730; 86850; 86900; 86901; 87040; 87070; 87086; 87186; 87205; 93005; 93010; 93970-TC; 94002; 94660; 99285-25; J1644